=== PATIENT | female | born 1945 | race Hispanic/Latino ===

== ENCOUNTER 2016-06-03 10:21 | Emergency (ER) | payer OTHER, MEDICARE ==
[~2016-06-03] VITALS: Ht 149.9 cm; Wt 76.7 kg
[~2016-06-03 10:21] MED LIST: ARICEPT5 M1 PO; ATENOLOL25 M1 PO; ATENOLOL50 MG PO; ATORVASTATIN CA40 M1 PO; ATORVASTATIN CA40 MG PO; CLOPIDOGREL75 MG PO; FLUTICASONE PRO16 GM NASB; KEPPRA500 M1 PO; LOSARTAN POTASS50 MG PO; METFORMIN1000 MG PO; MIRTAZAPINE45 MG PO; NEURONTIN100 M1 PO; NEXIUM40 M1 PO; NOVOLOG100 U/ML SC; OMEPRAZOLE40 MG PO; ONETOUCH ULTRA1 EACH INH; SERTRALINE HYDR25 MG PO; TRADJENTA5 M1 PO; VITAMIN D2400 IU PO; ZOFRAN 4 MG TABL4 MG PO; ZOLOFT 100 MG100 MG PO
--- NOTE | 2016-06-03 10:32 | ED NECK/BACK PAIN COMPLAINT ---
History of Present Illness General Chief Complaint: Low Back Pain/Injury Stated Complaint: LOWER BACK PAIN X 4DAYS Source: patient, family Exam Limitations: language barrier Vital Signs & Intake/Output Vital Signs & Intake/Output Vital Signs Date Time Temp Pulse Resp B/P Pulse O2 O2 Flow FiO2 Ox Delivery Rate 06/03 1214 97.2 58 18 139/64 97 Room Air 06/03 1026 97.2 71 20 135/67 98 Room Air Allergies Coded Allergies: Penicillins (Intermediate, HIVES 09/28/15) Triage Note: RIGHT LOWER BACK PAIN THAT RADIATES TOWARDS THE CENTER OF BACK X 4 DAYS. PT DENIES INJURY, PT DENIES URINARY S&S Triage Nurses Notes Reviewed? 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 Acute renal failure requiring emergent hemodialysis 2. Hyperkalemia with EKG changes 3. Uremia 4. Lactic acodisos 5. Severe dehydration 6. Acute gastroenteritis 7. Acute hypoxemic respiratory failure Patient presents to emergency room with daughter who translates in which patient is primarily Serbian-speaking only who states that for the past 4 days patient has been complaining of gradual onset of right-sided paralumbar muscular back pain that has progressively worsened and now has mild radiation to the left paralumbar muscular region. Patient denies any mechanism of injury. Patient states that rest she feels better and lumbar spine movements and ambulation makes worse. Denies any lower extremity paresthesia weakness or pain. Patient does state that the first day she had nausea however this has completely resolved. Patient denies any fevers chills chest pain abdominal pain current nausea or vomiting dysuria hematuria or vaginal bleeding or discharge. Patient has been trying [id number] pain medications with minimal relief of symptoms. (EDUARDO CHU) Reconcile Medications Atenolol 25 MG TABLET 75 MG PO DAILY HTN (Reported) Atorvastatin Calcium (Lipitor) 40 MG TAB 1 TAB PO DAILY CHOLESTEROL (Reported ) Blood Sugar Diagnostic (flexReceipts Ultra Test Strips) 1 EACH STRIP 1 STR INH DAILY DIABETES (Reported) CLOPIDOGREL BISULFATE (Clopidogrel) 75 MG TAB 1 TAB PO DAILY STROKE (Reported ) Donepezil HCl (Aricept) 5 MG TABLET 1 TAB PO QPM DEMENTIA (Reported) Ergocalciferol (Vitamin D2) 400 IU TAB 1 TAB PO WEEKLY SUPPLEMENT (Reported) Esomeprazole (Nexium) 40 MG CAPSULE.DR 1 CAP PO DAILY GERD (Reported) Fluticasone Propionate 16 GM SPRAY.SUSP 2 SPRAY NASB DAILY SINUS (Reported) Gabapentin (Neurontin) 100 MG CAPSULE 2 CAP PO AT BEDTIME HEADACHE (Reported) Hydrocodone/Acetaminophen (Vicodin 5-300 MG Tablet) 5 MG-300 MG TABLET 1 TAB PO BID PRN PAIN DO NOT OPERATE MOTOR VEHICLES WITH THIS MEDICATION Insulin Aspart, Recombinant (Novolog) 100 U/ML MARGARITA 1 UNITS SC SEE ADMIN CRITERIA diabetes BEFORE MEALS Blood Insulin Sugar Units <80 0 81-150 0 151-200 1 201-250 2 251-300 3 301-350 4 351-400 6 >400 8 and tameka MARQUES Levetiracetam (Keppra) 500 MG TABLET 500 MG PO BID SEIZURE Linagliptin (Tradjenta) 5 MG TABLET 0.5 TAB PO DAILY DIABETES (Reported) (VALENTE MARQUES,ALICIA Hweitt) Past History Travel History Traveled to [place] past 21 day No Medical History Any Pertinent Medical History? 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 No (REMA SIMPSON,EDUARDO) Review of Systems Review of Systems Constitutional: Reports: see HPI. Eyes: Reports: no symptoms. Ears, Nose, Throat, Mouth: Reports: no symptoms. Respiratory: Reports: no symptoms. Cardiovascular: Reports: no symptoms. Gastrointestinal/Abdominal: Reports: see HPI. Musculoskeletal: Reports: see HPI, back pain, muscle pain, muscle stiffness. Skin: Reports: no symptoms. Neurological/Psychological: Reports: no symptoms. All Other Systems: Reviewed and Negative (EDUARDO CHU) Physical Exam Physical Exam General Appearance: no apparent distress, obese Neck: normal inspection, supple, full range of motion Straight Leg Raising: Right: Negative. Left: Negative. Comments: Well-developed well-nourished person in no acute distress HEENT: Normal EENT exam, Neck: Supple, no lymphadenopathy, normal range of motion without pain or tenderness Back: Normal inspection, right-sided paralumbar muscular tenderness, no central spinous tenderness noted, mild left lateral muscular lumbar point tenderness, decreased active range of motion noted with pain Cardiovascular: Regular rate and rhythms no murmurs rubs or gallops, normal JVP Respiratory: Chest nontender. No respiratory distress.breath sounds clear to auscultation bilaterally Abdomen: Soft, nontender nondistended, no appreciable organomegaly. Normal bowel sounds. No ascites Extremity: No edema, no calf tenderness to palpation, normal and equal pulses. Bilateral lower extremity myotomes dermatomes DTRs intact Neuro: Alert oriented x3, motor sensory normal, Skin: No appreciable rash on exposed skin, skin is warm and dry. Psych: Mood and affect is normal, memory and judgment is normal. (EDURADO CHU) Progress Differential Diagnosis: AAA, aortic dissection, C spine injury, carotid dissection, cauda equina syn, herniated disc, myofascial strain, pyelo/UTI, sciatica, spinal cord inj, thoracic outlet syn, T/L spine injury, ureterolithiasis, PYELONEPHRITIS, SEPSIS, (EDUARDO CHU) Plan of Care: Orders Procedure Date/time Status Add-on Test (ER Only) 06/03 1209 Active CULTURE,URINE 06/03 1129 Active URINALYSIS 06/03 1113 Complete COMPREHENSIVE METABOLIC PANEL 06/03 1113 Complete CBC WITHOUT DIFFERENTIAL 06/03 1113 Complete Laboratory Tests 06/03/16 1129: Urine Color YEL, Urine Clarity CLEAR, Urine pH 6.0, Ur Specific Mcewen >= 1.030 , Urine Protein TRACE H, Urine Ketones NEG, Urine Nitrite NEG, Urine Bilirubin NEG, Urine Urobilinogen 0.2, Ur Leukocyte Esterase NEG, Ur Microscopic SEDIMENT EXAMINED, Urine RBC RARE, Urine WBC RARE, Ur Epithelial Cells MOD H, Urine Bacteria MANY H, Urine Mucus RARE, Urine Hemoglobin NEG, Urine Glucose NEG 06/03/16 1126: Anion Gap 6, Estimated GFR 44 L, BUN/Creatinine Ratio 24.2, Glucose 123 H, Calcium 9.7, Total Bilirubin 0.5, AST 22, ALT 32, Alkaline Phosphatase 90, Total Protein 7.1, Albumin 4.2, Globulin 2.9, Albumin/Globulin Ratio 1.4, CBC w Diff NO MAN DIFF REQ, RBC 4.01 L, MCV 87.0, MCH 29.3, RDW 14.4, MPV 7.6, Gran % 56.9 , Lymphocytes % 33.4, Monocytes % 6.1, Eosinophils % 3.3, Basophils % 0.3, Absolute Granulocytes 4.8, Absolute Lymphocytes 2.8, Absolute Monocytes 0.5, Absolute Eosinophils 0.3, Absolute Basophils 0, PUBS MCHC 33.6 Microbiology 06/03 1129 URINE ROUT: Urine Culture - RECD Patient currently is in no apparent distress, nontender abdomen, patient alert and oriented. Patient was afebrile. Patient was able to urinate in the emergency room and noted to have normal steady gait on ambulation to the bathroom. Due to past history of acute kidney injury and emergent dialysis patient's blood work will be obtained however my suspicion at this time of lumbar strain is high due to reproducible pain upon lumbar spine movement and muscular point tenderness. Patient had improvement of her back pain with Tylenol with Codeine. Discussed results with patient and family member in which at this time there are no concerns of acute kidney injury or intra-abdominal process. I discussed thoroughly with patient and family member to begin using fall prevention and continue to use a cane and patient will comply. Upon discharge patient looks well no apparent distress and will comply with discharge instructions and had no questions. Discussed disposition plan with Dr. Lozoya who agrees (EDUARDO CHU) Departure Departure Disposition: HOME OR SELF CARE Condition: Stable Clinical Impression Primary Impression: Low back pain Referrals: SHERLY PATEL (PCP/Family) Additional Instructions: As discussed continue to always use a cane for fall prevention. Begin the prescription of Vicodin for breakthrough pain relief. If no better tomorrow please follow-up with your primary care doctor. If symptoms worsen return to emergency room. Activity as tolerated. Begin icing or heating to improve the pain Prescriptions are waiting at [facility] pharmacy Departure Forms: Customer Survey General Discharge Information Prescriptions: Current Visit Scripts Hydrocodone/Acetaminophen (Vicodin 5-300 MG Tablet) 1 TAB PO BID PRN PAIN #8 TAB DO NOT OPERATE MOTOR VEHICLES WITH THIS MEDICATION (REMA SIMPSON,EDUARDO) PA/1ST GRADE TEACHER Co-Sign Statement Statement: ED Attending supervision documentation- [x] I saw and evaluated the patient. I have also reviewed all the pertinent lab results and diagnostic results. I agree with the findings and the plan of care as documented in the PA's/1ST GRADE TEACHER's documentation. [] I have reviewed the ED Record and agree with the PA's/1ST GRADE TEACHER's documentation. [] Additions or exceptions (if any) to the PAs/1ST GRADE TEACHER's note and plan are summarized below: [] (VALENTE MARQUES,ALICIA Hewitt)
[2016-06-03 11:32] LABS: ABSOLUTE BASOPHIL COUNT 0 /CUMM (0.0-0.2); ABSOLUTE EOSINOPHIL COUNT 0.3 /CUMM (0.0-0.7); ABSOLUTE GRANULOCYTE CT 4.8 /CUMM (1.4-6.5); ABSOLUTE LYMPH COUNT 2.8 /CUMM (1.2-3.4); ABSOLUTE MONOCYTE COUNT 0.5 /CUMM (0.10-0.60); BASOPHIL % 0.3 % (0.0-2.0); EOSINOPHIL % 3.3 % (0-5); GRANULOCYTE % 56.9 % (42.2-75.2); HEMATOCRIT 34.9 % (37-47); MEAN CORPUSCULAR HGB 29.3 PG (27.0-31.0); MEAN CORPUSCULAR HGB CONC 33.6 G/DL (33.0-37.0); MEAN PLATELET VOLUME 7.6 FL (7.4-10.4); PLATELET COUNT 217 /CUMM (130-400); RBC DISTRIBUTION WIDTH 14.4 % (11.5-14.5); RED BLOOD CELL CT 4.01 /CUMM (4.20-5.40); WHITE BLOOD CELL COUNT 8.5 /CUMM (4.8-10.8)
[2016-06-03 12:14] VITALS: BP 139/64
[2016-06-03] MEDS ORDERED: VICODIN 5-3001 EACH PO (12:24)
== END 2016-06-03 12:57 ==
LOC: ERH 10:21
PROVIDERS: Physician Assistant
DX: M54.5 Low back pain (principal)
CPT/HCPCS: 81001; 87086

== ENCOUNTER 2016-06-16 03:22 | Inpatient (IN) | payer OTHER, MEDICARE ==
[~2016-06-16] VITALS: Ht 157.5 cm; Wt 76.2 kg
[~2016-06-16 03:22] MED LIST changes: +VICODIN 5-3001 EACH PO
--- NOTE | 2016-06-16 03:30 | NUR ---
71YO FEMALE TO RM 8 VIA AMB W/CO BACK PAIN RECURRING AND UNABLE TO SLEEP. DTR STATE PT SEEN HERE 06/[address] PETIT
--- NOTE | 2016-06-16 03:34 | ED NECK/BACK PAIN COMPLAINT ---
History of Present Illness General Chief Complaint: Low Back Pain/Injury Stated Complaint: BIBA BACK PAIN Source: patient, family, old records, EMS Exam Limitations: no limitations Vital Signs & Intake/Output Vital Signs & Intake/Output Vital Signs Date Time Temp Pulse Resp B/P Pulse O2 O2 Flow FiO2 Ox Delivery Rate 06/16 1119 95.6 68 16 192/82 98 Room Air 06/16 0756 96.1 69 15 135/67 95 Room Air Room Air 06/16 0346 98 Room Air 06/16 0329 97.4 68 16 180/78 98 Room Air Room Air Allergies Coded Allergies: Penicillins (Intermediate, HIVES 09/28/15) Reconcile Medications Atenolol 25 MG TABLET 75 MG PO DAILY HTN (Reported) Atorvastatin Calcium (Lipitor) 40 MG TAB 1 TAB PO DAILY CHOLESTEROL (Reported ) Blood Sugar Diagnostic (ReaMetrix Ultra Test Strips) 1 EACH STRIP 1 STR INH DAILY DIABETES (Reported) CLOPIDOGREL BISULFATE (Clopidogrel) 75 MG TAB 1 TAB PO DAILY STROKE (Reported ) Donepezil HCl (Aricept) 5 MG TABLET 1 TAB PO QPM DEMENTIA (Reported) Ergocalciferol (Vitamin D2) 400 IU TAB 1 TAB PO WEEKLY SUPPLEMENT (Reported) Esomeprazole (Nexium) 40 MG CAPSULE.DR 1 CAP PO DAILY GERD (Reported) Fluticasone Propionate 16 GM SPRAY.SUSP 2 SPRAY NASB DAILY SINUS (Reported) Gabapentin (Neurontin) 100 MG CAPSULE 2 CAP PO AT BEDTIME HEADACHE (Reported) Hydrocodone/Acetaminophen (Vicodin 5-300 MG Tablet) 5 MG-300 MG TABLET 1 TAB PO BID PRN PAIN DO NOT OPERATE MOTOR VEHICLES WITH THIS MEDICATION Insulin Aspart, Recombinant (Novolog) 100 U/ML MARGARITA 1 UNITS SC SEE ADMIN CRITERIA diabetes BEFORE MEALS Blood Insulin Sugar Units <80 0 81-150 0 151-200 1 201-250 2 251-300 3 301-350 4 351-400 6 >400 8 and call Ipratropium Irving 21 MCG (0.03 %) SPRAY 1 SPRAY LESLI DAILY NASAL DRIP ( Reported) Lacosamide (Vimpat) 100 MG TABLET 1 TAB PO BID SEIZURES (Reported) Levetiracetam (Keppra) 500 MG TABLET 500 MG PO BID SEIZURE Linagliptin (Tradjenta) 5 MG TABLET 0.5 TAB PO DAILY DIABETES (Reported) Triage Note: 71YO FEMALE TO RM 8 VIA AMB W/CO BACK PAIN RECURRING AND UNABLE TO SLEEP. DTR STATE PT SEEN HERE 06/04 Triage Nurses Notes Reviewed? yes HPI: Patient was seen here on June 03 for back pain. Patient was sent home on Vicodin. Patient then saw her primary care physician who told her to stop the Vicodin and just take Tylenol for the pain. Since then the pain has been worsening. Tonight the pain was so bad that she was unable to sleep. The pain is aching in nature. The pain radiates to the center of her back. The pain increased with movement. There is no weakness or numbness. There is no incontinence of bowel or bladder. (MARISABEL MARQUES,DEMETRIA Grace) Past History Travel History Traveled to [place] past 21 day No Medical History Any Pertinent Medical History? 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 No (MARISABEL MARQUES,DEMETRIA Grace) Review of Systems Review of Systems Constitutional: Reports: no symptoms. Ears, Nose, Throat, Mouth: Reports: no symptoms. Respiratory: Reports: no symptoms. Cardiovascular: Reports: no symptoms. Gastrointestinal/Abdominal: Reports: no symptoms. Musculoskeletal: Reports: see HPI, back pain. Neurological/Psychological: Reports: no symptoms. (MARISABEL MARQUES,DEMETRIA Grace) Physical Exam Physical Exam General Appearance: well developed/nourished, alert, awake, anxious, mild distress Head: atraumatic Eyes: Bilateral: PERRL, EOMI. Neck: normal inspection, supple, no midline tenderness Respiratory: normal breath sounds, chest non-tender, no respiratory distress, lungs clear Cardiovascular: regular rate/rhythm, normal peripheral pulses Gastrointestinal: normal bowel sounds, soft, non-tender, no organomegaly Back: muscle spasm, no vertebral tenderness Straight Leg Raising: Right: Negative. Left: Negative. Neurologic/Psych: no motor/sensory deficits, awake, alert, oriented x 3, normal mood/affect (MARISABEL MARQUES,DEMETRIA Grace) Progress Differential Diagnosis: herniated disc, myofascial strain, T/L spine injury Plan of Care: Orders Procedure Date/time Status Regular Diet 06/16 L Active Regular Diet 06/16 B Complete Patient Data 06/16 1102 Active OXYGEN SETUP (GEN) 06/16 1047 Active Saline Lock 06/16 1047 Active Admit to inpatient 06/16 1047 Active Vital Signs 06/16 1047 Active Activity/Ambulation 06/16 1047 Active Code Status 06/16 1047 Active Intake & Output 06/16 0845 Active MAGNESIUM 06/16 08 Complete COMPREHENSIVE METABOLIC PANEL 06/16 08 Complete CBC WITHOUT DIFFERENTIAL 06/17 811 Complete PT Evaluate & Treat 06/16 0432 Active CASE MANAGEMENT CONSULT 06/16 0432 Active Laboratory Tests 06/16/16 0835: Anion Gap 12, Estimated GFR 55 L, BUN/Creatinine Ratio 31.0 H, Glucose 110 H, Calcium 10.0, Magnesium 1.9, Total Bilirubin 0.6, AST 24, ALT 34, Alkaline Phosphatase 93, Total Protein 7.7, Albumin 4.5, Globulin 3.2, Albumin/Globulin Ratio 1.4, CBC w Diff NO MAN DIFF REQ, RBC 4.26, MCV 88.2, MCH 29.2, RDW 14.2, MPV 8.3, Gran % 55.0, Lymphocytes % 35.7, Monocytes % 6.0, Eosinophils % 2.9, Basophils % 0.4, Absolute Granulocytes 5.3, Absolute Lymphocytes 3.4, Absolute Monocytes 0.6, Absolute Eosinophils 0.3, Absolute Basophils 0, PUBS MCHC 33.1 Diagnostic Imaging: Viewed by Me: Radiology Read. Discussed w/RAD: Radiology Read. Radiology Impression: PATIENT: PRETTY ROBERTS PRESENT AGE : 71 PATIENT ACCOUNT NO: [id number] : 44 LOCATION: [facility] ORDERING PHYSICIAN: DEMETRIA PETIT MD SERVICE DATE: 06/16/16 EXAM TYPE: RAD - XRY-LUMBOSACRAL SPINE 4 VIEWS EXAMINATION: LUMBOSACRAL SPINE 3 VIEWS CLINICAL INFORMATION: Back pain. COMPARISON: None. TECHNIQUE: AP, lateral, spot lateral views of the lumbosacral spine are provided. FINDINGS: There are no fractures. The lumbar vertebrae are in normal alignment. Disc heights and vertebral body heights are well-preserved. There is mild anterior osteophyte formation. IMPRESSION: Mild degenerative change in the lumbar spine without evidence of acute injury. DICTATED BY: LINNETTE RODRIGUEZ MD DATE/TIME DICTATED:06/16/16417 CANOE MAKER:RAYSA DATE/TIME TRANSCRIBED:06/16/16417 CONFIDENTIAL, DO NOT COPY WITHOUT APPROPRIATE AUTHORIZATION. <Electronically signed in Other Vendor System> SIGNED BY: LINNETTE RODRIGUEZ MD 06/16/16 0426 (DEMETRIA PETIT MD) Departure Departure Disposition: STILL A PATIENT Condition: Stable Clinical Impression Primary Impression: Back pain Referrals: SHERLY PATEL (PCP/Family) Additional Instructions: RETURN FOR ANY CONCNERS Departure Forms: Customer Survey General Discharge Information (DEMETRIA PETIT MD) Admission Note Spoke With: LENIN NASCIMENTO MD Documentation of Exam: Documentation of any treatments & extenuating circumstances including Concerns Regarding Discharge (functional status, medication knowledge or non-compliance, living conditions, etc.) that warrant an admission rather than observation: Analgesia medication adjustment physical therapy continuing care discharge planning ensure safety (COLTON MARQUES,MIKE)
[2016-06-16] MEDS ORDERED: VIMPAT100 M1 PO (03:35)
[2016-06-16] MEDS ORDERED: IPRATROPIUM BRO30 M2 NAS (03:37)
--- NOTE | 2016-06-16 03:54 | NUR ---
TO XR VIA STRETCHER
--- NOTE | 2016-06-16 04:07 | NUR ---
RETD FROM XR
--- NOTE | 2016-06-16 04:10 | NUR ---
STATES "SOME RELIEF AFTER PO MEDS"
--- NOTE | 2016-06-16 04:26 | RADIOLOGY REPORT ---
EXAMINATION: LUMBOSACRAL SPINE 3 VIEWS CLINICAL INFORMATION: Back pain. COMPARISON: None. TECHNIQUE: AP, lateral, spot lateral views of the lumbosacral spine are provided. FINDINGS: There are no fractures. The lumbar vertebrae are in normal alignment. Disc heights and vertebral body heights are well-preserved. There is mild anterior osteophyte formation. IMPRESSION: Mild degenerative change in the lumbar spine without evidence of acute injury.
--- NOTE | 2016-06-16 04:45 | NUR ---
DR PETIT IN TO RE EVAL--PT TO REMAIN HERE IN ER FOR PT EVAL IN AM
--- NOTE | 2016-06-16 05:00 | NUR ---
DAUGHTER PROVIDED RECLINER, TO WAIT FOR PT THIS AM,
--- NOTE | 2016-06-16 07:15 | NUR ---
PT PROVIDED BREAKFAST TRAY. CURRENTLY SLEEPING WITH NORMAL RESP RATE NOTED. DAUGHTER AT BEDSIDE.
--- NOTE | 2016-06-16 08:15 | NUR ---
PT AMBULATED WITH WALKER, ABLE TO AMBULATE WITH WALKER, BUT NEEDS ASSIST OF 1 GETTING IN AND OUT OF BED. PT WALKS VERY SLOWLY AND PER DAUGHTER, NOT HER BASELINE.
--- NOTE | 2016-06-16 08:44 | NUR ---
BLOOD WORK DRAWN AND SENT TO LAB: SST, LAV, BLUE, CISNEROS. PT MEDICATED WITH VALIUM. NS LITER BOLUS INFUSING NOW. PT TO BE MEDICATED WITH OFIRMEV WHEN VALIUM IS FINISHED.
[2016-06-16 08:59] LABS: ABSOLUTE BASOPHIL COUNT 0 /CUMM (0.0-0.2); ABSOLUTE EOSINOPHIL COUNT 0.3 /CUMM (0.0-0.7); ABSOLUTE GRANULOCYTE CT 5.3 /CUMM (1.4-6.5); ABSOLUTE LYMPH COUNT 3.4 /CUMM (1.2-3.4); ABSOLUTE MONOCYTE COUNT 0.6 /CUMM (0.10-0.60); BASOPHIL % 0.4 % (0.0-2.0); EOSINOPHIL % 2.9 % (0-5); HEMATOCRIT 37.5 % (37-47); MEAN CORPUSCULAR HGB 29.2 PG (27.0-31.0); MEAN CORPUSCULAR HGB CONC 33.1 G/DL (33.0-37.0); MEAN CORPUSCULAR VOLUME 88.2 FL (81.0-99.0); MEAN PLATELET VOLUME 8.3 FL (7.4-10.4); PLATELET COUNT 207 /CUMM (130-400); RBC DISTRIBUTION WIDTH 14.2 % (11.5-14.5); RED BLOOD CELL CT 4.26 /CUMM (4.20-5.40); WHITE BLOOD CELL COUNT 9.6 /CUMM (4.8-10.8)
--- NOTE | 2016-06-16 09:09 | NUR ---
PHYSICAL THERAPY AT BEDSIDE FOR EVAL
--- NOTE | 2016-06-16 12:04 | NUR ---
PT NOTED SLEEPING AND HOUSE STAFF AT BEDSIDE TO DEAN PT
--- NOTE | 2016-06-16 13:05 | NUR ---
NURSE CALLED ABOUT 10 MIN AGO TO GET REOPORT AND I WAS NEDICATING A PT AND REQUESTED TO CALL BACK. ATTEMPTED TO GIVE REPORT AND NURSE WAS BUSY BUSY DISCHARGING A PT AND WILL CALLL BACK
--- NOTE | 2016-06-16 13:23 | NUR ---
REPORT GIVEN TO NURSE AND TRANSPORT ALSO CALLED
--- NOTE | 2016-06-16 13:37 | History & Physical ---
SUZANNE MARQUES,JOHANNA 06/16/16 1304: General Information and HPI MD Statement: I have seen and personally examined PRETTY ROBERTS and documented this H&P. The patient is a 71 year old F who presented with a patient stated chief complaint of back pain[]. Source of Information: patient, family Exam Limitations: language barrier History of Present Illness: 71-year-old female with a past nuchal history of right-sided MCA 2014, with left -sided upper extremity deficit currently on Plavix, history of hypertension and insulin-dependent diabetes presents from home with her daughter (Pretty) whom much of the history is obtained from, complaining of increased back pain that started this morning at 2 AM while lying in bed. She was seen in the ER on 06/03 complaining of back pain was given Vicodin and sent home. She completed this prescription and the pain has returned. Reports pain that is 8/10 when trying to ambulate with her cane. Reporting that is aching in nature, radiates from the center for back to her right side. Denies any weakness or numbness, loss of sensation, bowel or bladder incontinence. Allergies/Medications Allergies: Coded Allergies: Penicillins (Intermediate, HIVES 09/28/15) Home Med list Atenolol 25 MG TABLET 75 MG PO DAILY HTN (Reported) Atorvastatin Calcium (Lipitor) 40 MG TAB 1 TAB PO DAILY CHOLESTEROL (Reported ) Blood Sugar Diagnostic ([employer] In[employer]ouch Ultra Test Strips) 1 EACH STRIP 1 STR INH DAILY DIABETES (Reported) CLOPIDOGREL BISULFATE (Clopidogrel) 75 MG TAB 1 TAB PO DAILY STROKE (Reported ) Donepezil HCl (Aricept) 5 MG TABLET 1 TAB PO QPM DEMENTIA (Reported) Ergocalciferol (Vitamin D2) 400 IU TAB 1 TAB PO WEEKLY SUPPLEMENT (Reported) Esomeprazole (Nexium) 40 MG CAPSULE.DR 1 CAP PO DAILY GERD (Reported) Fluticasone Propionate 16 GM SPRAY.SUSP 2 SPRAY NASB DAILY SINUS (Reported) Gabapentin (Neurontin) 100 MG CAPSULE 2 CAP PO AT BEDTIME HEADACHE (Reported) Hydrocodone/Acetaminophen (Vicodin 5-300 MG Tablet) 5 MG-300 MG TABLET 1 TAB PO BID PRN PAIN DO NOT OPERATE MOTOR VEHICLES WITH THIS MEDICATION Insulin Aspart, Recombinant (Novolog) 100 U/ML MARGARITA 1 UNITS SC SEE ADMIN CRITERIA diabetes BEFORE MEALS Blood Insulin Sugar Units <80 0 81-150 0 151-200 1 201-250 2 251-300 3 301-350 4 351-400 6 >400 8 and call Ipratropium [place] 21 MCG (0.03 %) SPRAY 1 SPRAY LESLI DAILY NASAL DRIP ( Reported) Lacosamide (Vimpat) 100 MG TABLET 1 TAB PO BID SEIZURES (Reported) Levetiracetam (Keppra) 500 MG TABLET 500 MG PO BID SEIZURE Linagliptin (Tradjenta) 5 MG TABLET 0.5 TAB PO DAILY DIABETES (Reported) Compliance With Home Meds: GOOD Past History Travel History Traveled to [place] past 21 day No Medical History Neurological: CVA, seizure Cardiovascular: hypertension, hyperlipidemia Gastrointestinal: H/O CDIFF 03/2015 Renal: CKD Psychiatric: depression Endocrine: diabetes Blood Disorders: NONE Cancer(s): NONE CERTIFIED MORTICIAN/Reproductive: NONE Other Medical Hx: family history: negative for renal diseaes History of MRSA: No History of VRE: No History of CDIFF: No Surgical History Surgical History: non-contributory Past Family/Social History Family History Relations & Conditions if any Relation not specified for: FH: diabetes mellitus FHx: hypertension Psychosocial History Who Do You Live With? self Services at Home: None Primary Language: Wallisian Smoking Status: Never Smoked ETOH Use: denies use Illicit Drug Use: denies illicit drug use Functional Ability ADLs Independent: dressing, eating, toileting, bathing. Ambulation: cane IADLs Needs Assist: finances, food prep, transportation, medication admin. Review of Systems Review of Systems Constitutional: Reports: see HPI. Cardiovascular: Reports: no symptoms. Respiratory: Reports: no symptoms. GI: Reports: no symptoms. Genitourinary: Reports: no symptoms. Musculoskeletal: Reports: back pain, muscle pain. Skin: Reports: no symptoms. Neurological/Psychological: Reports: dementia. Denies: numbness, paresthesia, tingling. All Other Systems: Reviewed and Negative Exam & Diagnostic Data Last 24 Hrs of Vital Signs/I&O Vital Signs Date Time Temp Pulse Resp B/P Pulse O2 O2 Flow FiO2 Ox Delivery Rate 06/16 1309 96.1 56 16 168/74 98 Room Air 06/16 1135 95.6 06/16 1119 95.6 68 16 192/82 98 Room Air 06/16 0756 96.1 69 15 135/67 95 Room Air Room Air 06/16 0346 98 Room Air 06/16 0329 97.4 68 16 180/78 98 Room Air Room Air Intake & Output 06/16 1600 06/16 0800 06/16 0000 Intake Total 1100 Output Total Balance 1100 Intake, IV 1100 Patient 169 lb Weight Physical Exam General Appearance Alert, Oriented X3, Cooperative, Moderate Distress Skin No Rashes, No Breakdown HEENT Atraumatic, PERRLA, EOMI, Mucous Membr. moist/pink Neck Supple, No JVD Lymphatic Cervical nl Cardiovascular Regular Rate, Normal S1, Normal S2, No Murmurs Lungs Clear to Auscultation, Normal Air Movement Abdomen Normal Bowel Sounds, Soft, No Tenderness Neurological Normal Speech, Sensation Intact (2/5 left upper extremity) Extremities No Edema, Normal Pulses Last 24 Hrs of Labs/Pancho: Laboratory Tests 06/16/16 0835: Anion Gap 12, Estimated GFR 55 L, BUN/Creatinine Ratio 31.0 H, Glucose 110 H, Calcium 10.0, Magnesium 1.9, Total Bilirubin 0.6, AST 24, ALT 34, Alkaline Phosphatase 93, Total Protein 7.7, Albumin 4.5, Globulin 3.2, Albumin/Globulin Ratio 1.4, CBC w Diff NO MAN DIFF REQ, RBC 4.26, MCV 88.2, MCH 29.2, RDW 14.2, MPV 8.3, Gran % 55.0, Lymphocytes % 35.7, Monocytes % 6.0, Eosinophils % 2.9, Basophils % 0.4, Absolute Granulocytes 5.3, Absolute Lymphocytes 3.4, Absolute Monocytes 0.6, Absolute Eosinophils 0.3, Absolute Basophils 0, PUBS MCHC 33.1 Diagnostic Data Other Results Mild degenerative change in the lumbar spine without evidence of acute injury. Assessment/Plan Assessment: 71-year-old female with a past medical history of right-sided MCA 2014, with left-sided upper extremity deficit currently on Plavix, history of hypertension and insulin-dependent diabetes presents from home complaining of increased back pain that started this morning at 2 AM while lying in bed, that is making mobilization difficult. Admit to for intractable back pain 8/10 back pain that is making mobilization difficult, will start to control pain with Tylenol for mild symptoms, Vicodin for moderate symptom, and morphine for severe. Will apply lidoderm patch. will need PT evaluation. Hypertension BP elevated likely due to pain, continue current regimen, BP recheck 162/82 History of stroke continue clopidogrel History of seizures continue vimpat History of dementia continue aricept Hyperlipidema continue atorvastatin DVT ppx heparin Sq As Ranked By This Provider Problem List: 1. Full code status 2. DVT prophylaxis 3. Diabetes 4. Hypertension 5. Low back pain 6. Dementia Core Measures/Miscellaneous Acute Coronary Syndrome ACS Diagnosis: No Cerebrovascular Accident CVA/TIA Diagnosis: No Congestive Heart Failure CHF Diagnosis: No Venous Thromboembolism VTE Risk Factors: Age > 40 No Mech VTE prophylaxis d/t: No contraindications No VTE Pharm Prophylaxis d/t: VTE low risk, No contraindications VTE Diagnosis: No VTE Type: NONE VTE Confirmed by (Test): NONE Severe Sepsis Severe Sepsis Present: No Septic Shock Septic Shock Present: No Miscellaneous Documentation Attending Case Discussed With: ARGENIS SILVERMAN MD Primary Care Physician: SHERLY PATEL Patient sees these Specialists none Level of Patient Care: General Medicine ARGENIS SILVERMAN 06/16/16 1414: Attending MD Review Statement Attending Statement Attending MD Statement: examined this patient, discuss w/resident/PA/MANNEQUIN MOUNTER, agreed w/resident/PA/MANNEQUIN MOUNTER, discussed with family, reviewed EMR data (avail), discussed with nursing, discussed with case mgmt, reviewed images Attending Assessment/Plan: 71-year-old female with a past nuchal history of right-sided MCA 2014, with left -sided upper extremity deficit currently on Plavix, history of hypertension and insulin-dependent diabetes ASSESSMENT 1. Intractable Back pain 2. H/o Stroke on plavix residual weakness of LUE 3/5 3. Hypertension accelerated 4. DM on insulin. 5 h/o seizure on Vimpat PLAN admit to medical services X-ray spine is negative for acute pathology, check UA, ESR. pain control , morphine i/v prn. IVF RISS and titrate insulin as needed. resume home meds. gi/dvt prophyalxis full code.
[2016-06-16 14:46] VITALS: BP 151/65
--- NOTE | 2016-06-16 20:20 | NUR ---
LATE ENTRY: PATIENT ARRIVED TO FLOOR AT APPROX 1400 FROM ED VIA STRETCHER ACCOMPANIED BY DISTRIBUTION; PATIENT AWAKE/ ALERT/OX3; MOSTLY BENGALI SPEAKING; ROOM AIR WITH CLEAR LUNG SOUNDS NOTED; PATIENT STATES PAIN TO BACK IS 9/10; LIDODERM PATCH TO LOWER BACK IN PLACE- PLACED BY ED AT 1315; PATIENT ORIENTED TO ROOM; CALL VICTOR GIVEN, EXPLAINED USE AND IN REACH; WILL CONT TO MONITOR
[2016-06-16 21:38] VITALS: BP 142/68
[2016-06-17 06:49] VITALS: BP 126/76
--- NOTE | 2016-06-17 07:45 | Discharge Summary ---
Visit Information Visit Dates Admission Date: 06/16/16 Discharge Date: 06/19/16 Hospital Course Course Attending Physician: ARGENIS SILVERMAN MD Primary Care Physician: SHERLY PATEL Hospital Course: This is a 71-year-old female with a past medical history of ischemic stroke in November 2014 with left-sided neurological deficit, currently on Plavix, hypertension, IDDM who has recently been discharged from the shelter facility and has been living with her daughter for the last 2 weeks with nurses aide visiting her at home when necessary. The patient came to the emergency department for intractable low back pain. The patient denied any recent trauma or fall prior coming to the emergency department. No neurological deficits were reported. No evidence of bowel or bladder incontinence or numbness or tingling as well. vitals the time of admission were stable Physical examination was awake within normal limits The patient was admitted to the general medicine floor and was treated for the following problems 1. intractable back pain in the thoracolumbar area with no neurological deficits 2. Chronic insulin-dependent diabetes mellitus 3. Previous history of MCA in 2004 with left-sided mild neurological deficit 4. Hypertension chronic Hospital course The patient was evaluated for the back pain. All the blood work including a CBC and basic collection panel were within normal limits we checked the patient's ESR which was also within normal limits. The patient lumbar spinal x-ray was done but did not show any acute fractures No further imaging was performed. The patient back pain was secondary to muscular in origin. Recommend giving Percocet for pain control. The patient will feel better with physical therapy. No changes were made to the patient's home medication and she was discharged to the short-term rehabilitation.She required 3 nghts of hospital stay for STR. Allergies: Coded Allergies: Penicillins (Intermediate, HIVES 09/28/15) Disposition Summary Disposition Principal Diagnosis: Low intractable back pain Additional Diagnosis: Insulin-dependent diabetes mellitus Chronic hypertension Chronic hyperlipidemia Discharge Disposition: SNF Discharge Instructions General Discharge Information Code Status: Full Code Patient's Diet: As tolerated Patient's Activity: As tolerated band recommended by the physical therapy Follow-Up Instructions/Appts: His follow-up with the primary care physician in one week Medications at Discharge Discharge Medications: Continue taking these medications: Ergocalciferol (Vitamin D2) 400 IU TAB 1 Tablet ORAL WEEKLY Comments: NOT GIVEN IN HOSPITAL CLOPIDOGREL BISULFATE (Clopidogrel) 75 MG TAB 1 Tablet ORAL DAILY Comments: Last Taken: 1/14/16 Time: 930AM Atorvastatin Calcium (Lipitor) 40 MG TAB 1 Tablet ORAL DAILY Comments: Last Taken: 03/20/15 Time: 930AM Insulin Aspart, Recombinant (Novolog) 100 U/ML MARGARITA 1 Units Inject into fatty tissue SEE INSTRUCTIONS Days = 28 Instructions: BEFORE MEALS Blood Insulin Sugar Units <80 0 81-150 0 151-200 1 201-250 2 251-300 3 301-350 4 351-400 6 >400 8 and call Comments: Last Taken: 03/20/15 Time: 1200PM Linagliptin (Tradjenta) 5 MG TABLET 0.5 Tablet ORAL DAILY Qty = 30 Comments: NOT GIVEN IN HOSPITAL Esomeprazole (Nexium) 40 MG CAPSULE.DR 1 Capsule ORAL DAILY Qty = 30 Comments: Last Taken: 02/16/16 Time: 6AM Atenolol (Atenolol) 25 MG TABLET 75 Milligram ORAL DAILY Qty = 90 Comments: Last Taken: 02/16/16 Time: 10AM Blood Sugar Diagnostic ([employer] Ultra Test Strips) 1 EACH STRIP 1 Strip Inhale through mouth DAILY Qty = 50 Comments: NOT GIVEN IN HOSPITAL Fluticasone Propionate (Fluticasone Propionate) 16 GM SPRAY.SUSP 2 [place] Both sides of nose DAILY Qty = 16 Comments: Last Taken: 02/16/16 Time: 10AM Donepezil HCl (Aricept) 5 MG TABLET 1 Tablet ORAL Every night Comments: Last Taken: 02/15/16 Time: 10PM Gabapentin (Neurontin) 100 MG CAPSULE 2 Capsule ORAL AT BEDTIME Comments: Last Taken: 02/15/16 Time: 10AP Levetiracetam (Keppra) 500 MG TABLET 500 [place] ORAL TWICE DAILY Days = 60 Comments: Last Taken: 02/16/16 Time: 10AM Hydrocodone/Acetaminophen (Vicodin 5-300 MG Tablet) 5 MG-300 MG TABLET 1 Tablet ORAL TWICE DAILY as needed for PAIN Qty = 8 Instructions: DO NOT OPERATE MOTOR VEHICLES WITH THIS MEDICATION Lacosamide (Vimpat) 100 MG TABLET 1 Tablet ORAL TWICE DAILY Qty = 60 Ipratropium [place] (Ipratropium [place]) 21 MCG (0.03 %) SPRAY 1 [place] In the nose DAILY Qty = 30 Start taking the following new medications: Oxycodone HCl/Acetaminophen (Percocet 5-325 MG Tablet) 5 MG-325 MG TABLET 1 Tablet ORAL TWICE DAILY Qty = 20 No Refills Copies To: SHERLY PATEL
--- NOTE | 2016-06-17 11:05 | PN- Housestaff ---
BARBAR[facility]QU[facility] [place] 06/17[facility]16 1105: Subjective Follow-up For: Intractable back pain Subjective: Afebrile, hemodynamically stable, no acute overnight events reported. He was complaining of 8 out of 10 lower back pain that radiated to her left thigh anteriorly. Patient denies urine or bowel incontinence. She denies any new weakness, numbness or tingling. She has no history of trauma or moving heavy objects. Patient speak only Kazakh Review of Systems Constitutional: Reports: see HPI. Objective Last 24 Hrs of Vital Signs/I&O Vital Signs Date Time Temp Pulse Resp B/P Pulse O2 O2 Flow FiO2 Ox Delivery Rate 06/17 1110 53 124/59 06/17 0649 97.1 94 18 126/76 96 Room Air 06/16 2138 97.8 66 18 142/68 99 Room Air 06/16 1851 62 06/16 1446 98.7 58 20 151/65 98 Room Air Intake & Output 06/17 1600 06/17 0800 06/17 0000 Intake Total 1040 Output Total 250 Balance 790 Intake, IV 0 Intake, Oral 1040 Number 0 Bowel Movements Output, Urine 250 Physical Exam General Appearance: Alert, Oriented X3, Cooperative, Mild Distress Skin: No Rashes HEENT: Atraumatic, PERRLA, EOMI, Mucous Membr. moist/pink Cardiovascular: Regular Rate, Normal S1, Normal S2, No Murmurs Lungs: Clear to Auscultation, Normal Air Movement Abdomen: Soft, No Tenderness Neurological: Normal Speech, 5/5 ON THE RIGHT SIDE UE AND LE. 5/5 ON THE LEFT SIDE LE, and 4/5 ON THE LEFT UE Extremities: No Clubbing, No Cyanosis, No Edema Current Medications: Current Medications Sig/Zach Start time Last Medication Dose Route Stop Time Status Admin Acetaminophen 650 MG Q6P PRN 06/16 1300 AC PO Acetaminophen/ 1 TAB Q6P PRN 06/16 1300 AC 06/17 Hydrocodone Bitart PO 0819 Atenolol 75 MG DAILY 06/16 1301 AC 06/16 PO 1851 Atorvastatin Calcium 40 MG 1700 06/16 1700 AC 06/16 PO 1754 Clopidogrel Bisulfate 75 MG DAILY 06/16 1300 AC 06/17 PO 1057 Donepezil HCl 5 MG QPM 06/16 2200 AC 06/16 PO 2234 Fluticasone 2 SPRAY DAILY 06/16 1301 AC 06/17 Propionate LESLI 1058 Gabapentin 200 MG AT BEDTIME 06/16 2200 AC 06/16 PO 2234 Heparin Sodium 5,000 UNIT Q8 06/16 1400 AC 06/17 (Porcine) SC 1351 Insulin Aspart 0 TIDAC 06/16 1700 AC 06/17 SC 1352 Lacosamide 100 MG BID 06/16 1315 AC 06/17 PO 1120 Lidocaine 1 PAT Q24H 06/16 1300 AC 06/17 EXT 1351 Morphine Sulfate 2 MG Q6-PRN PRN 06/16 1300 AC 06/17 IV 0621 Omeprazole 40 MG DAILY AC 06/16 1301 AC 06/17 PO 0621 Last 24 Hrs of Lab/Pancho Results Last 24 Hrs of Labs/Mics: Laboratory Tests 06/17/16 1125: ESR [place] 16 06/16/16 1450: ESR [place] Cancelled 06/16/16 1445: Urine Color Cancelled, Urine Clarity Cancelled, Urine pH Cancelled, Ur Specific [place] Cancelled, Urine Protein Cancelled, Urine Ketones Cancelled, Urine Nitrite Cancelled, Urine Bilirubin Cancelled, Urine Urobilinogen Cancelled, Ur Leukocyte Esterase Cancelled, Ur Microscopic Cancelled, Urine Hemoglobin Cancelled, Urine Glucose Cancelled Assessment/Plan Assessment: 71/F with PMHx of right-sided MCA 2014, with left-sided upper extremity deficit currently on Plavix, history of hypertension and insulin-dependent diabetes presents from home complaining of increased back pain that started on the morning of admission while lying in bed. #Intractable back pain Patient presented with 10/10 lower back pain that radiated to to the left thigh anteriorly. Patient denies bowel or urine incontinence. Lumbosacral spine 3 views x-ray result; Mild degenerative change in the lumbar spine without evidence of acute injury. * We will order ESR again * PT evaluation recommended STR. #Hypertension * BP elevated most likely due to pain * Continue home dose of Atenolol 75mg #History of stroke * Continue home dose of clopidogrel #History of seizures * Continue home dose of vimpat #History of dementia * Continue home dose of aricept #Hyperlipidema * Continue atorvastatin #DM * Accu-Chek and insulin sliding scale Diabetic diet DVT ppx heparin Sq Full code Problem List: 1. Low back pain Pain Ratin Pain Location: LOWER BACK Pain Goal: Pain 4 or less Pain Plan: SEE A&P Tomorrow's Labs & Rationales: NONE ALL LABS WAS WNL ARGENIS SILVERMAN 06/17/16 1126: Attending MD Review Statement Attending Statement Attending MD Statement: examined this patient, discuss w/resident/PA/ORGANIC LAB WORKER, agreed w/resident/PA/ORGANIC LAB WORKER, discussed with family, reviewed EMR data (avail), discussed with nursing, discussed with case mgmt, reviewed images Attending Assessment/Plan: 71-year-old female with a past medical history of right-sided MCA 2014, with left-sided upper extremity deficit currently on Plavix, history of hypertension and insulin-dependent diabetes ASSESSMENT 1. Intractable Back pain 2. H/o Stroke on plavix residual weakness of LUE 4/5 3. Hypertension accelerated 4. DM on insulin. 5 h/o seizure on Vimpat 6. h/o c diff in past. PLAN admit to medical services X-ray spine is negative for acute pathology, check UA, ESR. (ESR was cancelled by lab) pain control , morphine i/v prn. IVF RISS and titrate insulin as needed. resume home meds. gi/dvt prophyalxis full code.
--- NOTE | 2016-06-17 11:30 | NUR ---
NSG NOTE: THIS RN HELD PATIENTS ATENOLOL 75 MG; POLLO 124/59; HR 53; ISMAIL #[id number] AWARE; WILL CONT TO MONITOR
--- NOTE | 2016-06-17 11:38 | Patient Discharge Instructions ---
Discharge Instructions General Discharge Information You were seen/treated for: low back pain You had these procedures: none Special Instructions: please f/u with pcp in 1 week of dsicharge Acute Coronary Syndrome Inclusion Criteria At DC or during hospital stay patient has or had the following: ACS DIAGNOSIS No Discharge Core Measures Meds if any: Prescribed or Continued at Discharge Meds if any: NOT Prescribed or Continued at Discharge Congestive Heart Failure Inclusion Criteria At DC or during hospital stay patient has or had the following: CHF DIAGNOSIS No Discharge Core Measures Meds if any: Prescribed or Continued at Discharge Meds if any: NOT Prescribed or Continued at Discharge Cerebrovascular accident Inclusion Criteria At DC or during hospital stay patient has or had the following: CVA/TIA Diagnosis No Discharge Core Measures Meds if any: Prescribed or Continued at Discharge Meds if any: NOT Prescribed or Continued at Discharge Venous thromboembolism Inclusion Criteria VTE Diagnosis No VTE Type NONE VTE Confirmed by (Test) NONE Discharge Core Measures - Per Current guidelines, there needs to be overlap - treatment for the first 5 days of Warfarin therapy. - If discharged on Warfarin prior to 5 days of - overlap therapy, the patient will need to be - assessed for post discharge needs including - *Post discharge parental anticoagulation - *Warfarin and/or parental anticoagulation education - *Follow up date to check INR post discharge At least 5 days overlap therapy as Inpatient No Meds if any: Prescribed or Continued at Discharge Note: Overlap Therapy is Warfarin and Anticoagulant Meds if any: NOT Prescribed or Continued at Discharge
[2016-06-17 14:37] VITALS: BP 135/68
[2016-06-17 22:38] VITALS: BP 118/58
[2016-06-18 06:59] VITALS: BP 124/60
--- NOTE | 2016-06-18 09:07 | PN- Housestaff ---
See Addendum Subjective Follow-up For: Intractable back pain Subjective: Afebrile, hemodynamically stable, no acute overnight events reported. She is complaining of 7 out of 10 lower back pain that radiated to her left thigh anteriorly. She denies any other complaints, she denies alarming symptom. Review of Systems Constitutional: Reports: see HPI. Objective Last 24 Hrs of Vital Signs/I&O Vital Signs Date Time Temp Pulse Resp B/P Pulse O2 O2 Flow FiO2 Ox Delivery Rate 06/18 0659 97.8 69 18 124/60 93 Room Air 06/17 2238 97.1 71 19 118/58 93 Room Air 06/17 1555 58 130/72 06/17 1529 Room Air Room Air 06/17 1437 98.6 66 20 135/68 94 Room Air 06/17 1110 53 124/59 Intake & Output 06/18 1600 06/18 0800 06/18 0000 Intake Total 240 800 Output Total 450 Balance 240 350 Intake, Oral 240 800 Output, Urine 450 Physical Exam General Appearance: Alert, Oriented X3, Cooperative, No Acute Distress Skin: No Rashes HEENT: Atraumatic, PERRLA, EOMI, Mucous Membr. moist/pink Cardiovascular: Regular Rate, Normal S1, Normal S2, No Murmurs Lungs: Clear to Auscultation, Normal Air Movement Abdomen: Normal Bowel Sounds, Soft, No Tenderness Neurological: Normal Speech, Strength at 5/5 X4 Ext (except 4/5 on Lt UE), Sensation Intact, Cranial Nerves 3-12 NL Extremities: No Clubbing, No Cyanosis, No Edema Other Physical Findings: left lower back tenderness Current Medications: Current Medications Sig/Zach Start time Last Medication Dose Route Stop Time Status Admin Acetaminophen 650 MG Q6P PRN 06/16 1300 AC PO Acetaminophen/ 1 TAB Q6P PRN 06/16 1300 AC 06/18 Hydrocodone Bitart PO 0640 Atenolol 75 MG DAILY 06/16 1301 AC 06/17 PO 1555 Atorvastatin Calcium 40 MG 1700 06/16 1700 AC 06/17 PO 1746 Clopidogrel Bisulfate 75 MG DAILY 06/16 1300 AC 06/17 PO 1057 Donepezil HCl 5 MG QPM 06/16 2200 AC 06/17 PO 2212 Fluticasone 2 SPRAY DAILY 06/16 1301 AC 06/17 Propionate LESLI 1058 Gabapentin 200 MG AT BEDTIME 06/16 2200 AC 06/17 PO 2212 Heparin Sodium 5,000 UNIT Q8 06/16 1400 AC 06/18 (Porcine) SC 0639 Insulin Aspart 0 TIDAC 06/16 1700 AC 06/17 SC 1352 Lacosamide 100 MG BID 06/16 1315 AC 06/17 PO 2212 Lidocaine 1 PAT Q24H 06/16 1300 AC 06/17 EXT 1351 Morphine Sulfate 2 MG Q6-PRN PRN 06/16 1300 AC 06/18 IV 0823 Omeprazole 40 MG DAILY AC 06/16 1301 AC 06/18 PO 0639 Last 24 Hrs of Lab/Pancho Results Last 24 Hrs of Labs/Mics: Laboratory Tests 06/17/16 1125: ESR Westergren 16 Assessment/Plan Assessment: 71/F with PMHx of right-sided MCA 2014, with left-sided upper extremity deficit currently on Plavix, history of hypertension and insulin-dependent diabetes presents from home complaining of increased back pain that started on the morning of admission while lying in bed. #Intractable back pain Patient presented with 10/10 lower back pain that radiated to to the left thigh anteriorly. Patient denies bowel or urine incontinence. Lumbosacral spine 3 views x-ray result; Mild degenerative change in the lumbar spine without evidence of acute injury. ESR result was WNL yesterday. PT evaluation recommended STR. * Continue pain management as IV morphine 2 mg every 6 when necessary and [place] 1 Tab Q6 PRN * We will most likely discharged to a short-term rehabilitation #Hypertension * Continue home dose of Atenolol 75mg #History of stroke * Continue home dose of clopidogrel #History of seizures * Continue home dose of vimpat #History of dementia * Continue home dose of aricept #Hyperlipidema * Continue atorvastatin #DM * Accu-Chek and insulin sliding scale Diabetic diet DVT ppx heparin Sq Full code Problem List: 1. Low back pain Pain Ratin Pain Location: lower back Pain Goal: Pain 4 or less Pain Plan: See A&P Tomorrow's Labs & Rationales: no need for lab
[2016-06-18] MEDS ORDERED: PERCOCET 5-3251 EACH PO (09:11)
[2016-06-18 13:56] VITALS: BP 149/69
[2016-06-18 22:30] VITALS: BP 124/64
[2016-06-19 07:26] VITALS: BP 172/74
--- NOTE | 2016-06-19 08:29 | PN- Housestaff ---
See Addendum Subjective Follow-up For: Intractable back pain Subjective: Afebrile, hemodynamically stable, no acute overnight events reported. She is complaining of 6 out of 10 lower back pain. She denies any other complaints, she denies any back pain alarming symptom. He denies any other current complaints Review of Systems Constitutional: Reports: see HPI. Objective Last 24 Hrs of Vital Signs/I&O Vital Signs Date Time Temp Pulse Resp B/P Pulse O2 O2 Flow FiO2 Ox Delivery Rate 06/19 0726 98.8 62 20 172/74 94 Room Air 06/18 2230 98.9 73 19 124/64 90 Room Air 06/18 1356 98.7 55 19 149/69 99 Room Air 06/18 1148 130/66 Intake & Output 06/19 1600 06/19 0800 06/19 0000 Intake Total 250 480 Output Total Balance 250 480 Intake, Oral 250 480 Physical Exam General Appearance: Alert, Oriented X3, Cooperative, No Acute Distress Skin: No Rashes HEENT: Atraumatic, PERRLA, EOMI, Mucous Membr. moist/pink Cardiovascular: Regular Rate, Normal S1, Normal S2, No Murmurs Lungs: Clear to Auscultation, Normal Air Movement Abdomen: Normal Bowel Sounds, Soft Neurological: Normal Speech Extremities: No Clubbing, No Cyanosis, No Edema Current Medications: Current Medications Sig/Zach Start time Last Medication Dose Route Stop Time Status Admin Acetaminophen 650 MG Q6P PRN 06/16 1300 AC PO Acetaminophen/ 1 TAB Q6P PRN 06/16 1300 AC 06/19 Hydrocodone Bitart PO 0604 Atenolol 75 MG DAILY 06/16 1301 AC 06/19 PO 0831 Atorvastatin Calcium 40 MG 1700 06/16 1700 AC 06/18 PO 1741 Bisacodyl 5 MG DAILY PRN 06/18 1700 AC 06/18 PO 1740 Clopidogrel Bisulfate 75 MG DAILY 06/16 1300 AC 06/19 PO 0831 Donepezil HCl 5 MG QPM 06/16 2200 AC 06/18 PO 2105 Fluticasone 2 SPRAY DAILY 06/16 1301 AC 06/19 Propionate LESLI 0831 Gabapentin 200 MG AT BEDTIME 06/16 2200 AC 06/18 PO 2105 Heparin Sodium 5,000 UNIT Q8 06/16 1400 AC 06/19 (Porcine) SC 0558 Insulin Aspart 0 TIDAC 06/16 1700 AC 06/18 SC 1152 Lacosamide 100 MG BID 06/16 1315 AC 06/19 PO 0831 Lidocaine 1 PAT Q24H 06/16 1300 AC 06/18 EXT 1200 Morphine Sulfate 2 MG Q6-PRN PRN 06/16 1300 AC 06/18 IV 0823 Omeprazole 40 MG DAILY AC 06/16 1301 AC 06/19 PO 0558 Assessment/Plan Assessment: 71/F with PMHx of right-sided MCA 2014, with left-sided upper extremity deficit currently on Plavix, history of hypertension and insulin-dependent diabetes presents from home complaining of increased back pain that started on the morning of admission while lying in bed. #Intractable back pain Patient presented with 10/10 lower back pain that radiated to to the left thigh anteriorly. Patient denies bowel or urine incontinence. Lumbosacral spine 3 views x-ray result; Mild degenerative change in the lumbar spine without evidence of acute injury. ESR result was WNL yesterday. PT evaluation recommended STR. * Continue pain management as IV morphine 2 mg every 6 when necessary and [place] 1 Tab Q6 PRN * We will most likely discharged to a short-term rehabilitation later today #Hypertension * Continue home dose of Atenolol 75mg #History of stroke * Continue home dose of clopidogrel #History of seizures * Continue home dose of vimpat #History of dementia * Continue home dose of aricept #Hyperlipidema * Continue atorvastatin #DM * Accu-Chek and insulin sliding scale Diabetic diet DVT ppx heparin Sq Full code Problem List: 1. Low back pain Pain Ratin Pain Location: back Pain Goal: Remain pain free Pain Plan: See A&P Tomorrow's Labs & Rationales: None as patient most likely discharged today
[2016-06-19 14:42] VITALS: BP 132/72
[2016-06-19 14:44] VITALS: BP 172/74
--- NOTE | 2016-06-19 15:32 | NUR ---
NURSING NOTE: REPORT CALLED TO [facility] FOR PATIENT DISCHARGE. REPORT GIVEN TO NURSE COMING ON BEFORE DISCHAGRE ALL PAPERWORK FINISHED.
== END 2016-06-19 17:04 | DRG 552 ==
LOC: ENRESERVDT → ENRESERVTM → ERH 03:22 → 2NB 10:47 → ERHI 10:47 → ENPENDDIS 10:47 → 2NB 13:56
PROVIDERS: Emergency Medicine; ADMIT Internal Medicine
DX: M54.9 Dorsalgia, unspecified (principal); E11.22 Type 2 diabetes mellitus with diabetic chronic kidney disease; F03.90 Unspecified dementia, unspecified severity, without behavioral disturbance, psychotic disturbance, mood disturbance, and anxiety; I69.354 Hemiplegia and hemiparesis following cerebral infarction affecting left non-dominant side; Z79.4 Long term (current) use of insulin; E78.5 Hyperlipidemia, unspecified; I12.9 Hypertensive chronic kidney disease with stage 1 through stage 4 chronic kidney disease, or unspecified chronic kidney disease; N18.9 Chronic kidney disease, unspecified; R56.9 Unspecified convulsions
CPT/HCPCS: 2NBP; 72110; 96374; 96375; 97110-GO; 97116-GO; 97530-GO; J0131; J1644; J3360

== ENCOUNTER 2017-05-24 13:15 | Observation (INO) | payer OTHER, MEDICARE ==
[~2017-05-24] VITALS: Ht 139.7 cm; Wt 81.6 kg
[~2017-05-24 13:15] MED LIST changes: +ASTEPRO205.5 MCG1 NASB; -ATORVASTATIN CA40 MG PO; -CLOPIDOGREL75 MG PO; +CYANOCOBAL1000 MCG/2 IM; +DELTASONE20 MG PO; +DOXYCYCLINE HY100 M4 PO; +ESCITALOPRAM OX10 MG PO; +IPRATROPIUM BRO30 M2 NAS; +LAMOTRIGINE25 M3 PO; +LIDOCAINE1 EACH TOP; +LIPITOR40 M1 PO; -NEURONTIN100 M1 PO; +NEURONTIN300 M1 PO; +PANTOPRAZOLE SO40 M1 PO; +PERCOCET 5-3251 EACH PO; +PLAVIX75 M1 PO; +PROAIR HFA8.5 GM INH; +PROCHLORPERAZINE5 M2 PO; +TAMIFLU75 M1 PO; +TIZANIDINE HCL2 M1 PO; +VIMPAT100 M1 PO; +VITAMIN B-121000 MC3 PO; +VITAMIN D31000 UNI2 PO; +VITAMIN D400 UNI2 PO
--- NOTE | 2017-05-24 13:19 | ED GENERAL ADULT ---
History of Present Illness General Chief Complaint: Nausea, Vomiting, Diarrhea Stated Complaint: N/V Source: patient, family, old records Exam Limitations: no limitations Vital Signs & Intake/Output Vital Signs & Intake/Output Vital Signs Date Time Temp Pulse Resp B/P B/P Pulse O2 O2 Flow FiO2 Mean Ox Delivery Rate 05/24 1715 98.6 59 18 142/80 95 Room Air 05/24 1355 96 05/24 1322 96 05/24 1320 99.0 60 18 172/82 96 Room Air Allergies Coded Allergies: Penicillins (Intermediate, HIVES 05/19/17) Reconcile Medications Albuterol Sulfate (Proair Hfa) 90 MCG HFA.AER.AD 2 PUF INH Q4-6 PRN PRN COUGH/ SOB Atenolol 25 MG TABLET 75 MG PO DAILY HTN (Reported) Atorvastatin Calcium (Lipitor) 40 MG TABLET 1 TAB PO DAILY CHOLESTEROL ( Reported) Azelastine HCl (Astepro) 205.5 MCG (0.15 %) SPRAY.PUMP 2 SPRAY NASB DAILY POST NASAL DRIP (Reported) Cholecalciferol (Vitamin D3) (Vitamin D) 400 UNIT TABLET 1 TAB PO QFRI SUPPLEMENT (Reported) Clopidogrel Bisulfate (Plavix) 75 MG TABLET 1 TAB PO DAILY STROKE (Reported) Donepezil HCl (Aricept) 5 MG TABLET 1 TAB PO QPM DEMENTIA (Reported) Escitalopram Oxalate 10 MG TABLET 1 TAB PO DAILY DEPRESSION (Reported) Gabapentin (Neurontin) 300 MG CAPSULE 1 CAP PO QPM HEADACHE (Reported) Lacosamide (Vimpat) 100 MG TABLET 1 TAB PO BID SEIZURES (Reported) Lamotrigine 25 MG TABLET 2 TAB PO DAILY SEIZURES (Reported) Lidocaine 5 % ADH..PATCH 1 PAT TOP PRN PAIN (Reported) Linagliptin (Tradjenta) 5 MG TABLET 0.5 TAB PO DAILY DIABETES (Reported) Pantoprazole Sodium 40 MG TABLET.DR 1 TAB PO DAILY ACID REFLUX (Reported) Prochlorperazine Maleate 5 MG TABLET 1 TAB PO PRN N/V (Reported) Triage Nurses Notes Reviewed? yes Onset: Abrupt Duration: day(s): (1), constant, continues in ED Timing: recent history Injury Environment: home Severity: mild, moderate No Modifying Factors: none Associated Symptoms: back pain, cough LMP (ages 10-50): post menopausal : No Patient currently breastfeeds: No HPI: 72-year-old female past medical history of CVA with left-sided deficit, seizure disorder, diabetes, hypertension,HLD presents for evaluation of nausea vomiting shortness of breath and cough. Patient was seen here 5 days ago and diagnosed with acute bronchitis. She was started on prednisone pro-air and doxycycline. She's been taking these as directed however daughter feels that she is not improving she continues to have a cough and wheezing. She went to her primary care doctor's office today for follow-up and she was given a DuoNeb. When the DuoNeb started she vomited and has been vomiting since. She is reporting continued abdominal and back pain shortness of breath cough productive of yellow sputum. There's been no fevers chest pain hemoptysis or lower extremity edema. She's been eating and drinking normally does been no nausea or vomiting or diarrhea BEfor today. (Aubrey Box) Past History Medical History Any Pertinent Medical History? see below for history Neurological: CVA, seizure, headaches EENT: NONE Cardiovascular: hypertension, hyperlipidemia Respiratory: NONE Gastrointestinal: H/O CDIFF 03/2015 Hepatic: NONE Renal: CKD Musculoskeletal: NONE Psychiatric: depression Endocrine: diabetes Blood Disorders: NONE Cancer(s): NONE MODEL AND DYE PERSON/Reproductive: NONE Other Medical Hx: family history: negative for renal diseaes History of MRSA: No History of VRE: No History of CDIFF: No Surgical History Surgical History: non-contributory Psychosocial History Who do you live with Family Services at Home None What is your primary language Mongolian Family History Family History, If Any: Relation not specified for: FH: diabetes mellitus FHx: hypertension Hx Contributory? No (Aubrey Box) Review of Systems Review of Systems Constitutional: Reports: no symptoms. EENTM: Reports: no symptoms. Respiratory: Reports: see HPI, cough, short of breath, sputum production, wheezing. Cardiovascular: Reports: no symptoms. GI: Reports: see HPI, abdominal pain, nausea. Genitourinary: Reports: no symptoms. Musculoskeletal: Reports: see HPI, back pain. Skin: Reports: no symptoms. Neurological/Psychological: Reports: no symptoms. Hematologic/Endocrine: Reports: no symptoms. Immunologic/Allergic: Reports: no symptoms. All Other Systems: Reviewed and Negative (Aubrey Box) Physical Exam Physical Exam General Appearance: well developed/nourished, no apparent distress, alert, awake , obese Head: atraumatic, normal appearance Eyes: Bilateral: normal appearance, PERRL, EOMI. Ears, Nose, Throat: normal pharynx, normal ENT inspection, hearing grossly normal Neck: normal inspection, supple, full range of motion Respiratory: chest non-tender, no respiratory distress, rhonchi, wheezing Cardiovascular: regular rate/rhythm, normal peripheral pulses Peripheral Pulses: 2+ radial (R), 2+ radial (L) Gastrointestinal: normal bowel sounds, soft, no organomegaly, tenderness ( EPIGASTRIC ) Back: normal inspection, normal range of motion, no vertebral tenderness, RIGHT- SIDED PARASPINOUS MUSCLES TENDER TO PALPATION IN THE LUMBAR REGION. nO MIDLINE TENDERNESS NO STEP-OFFS OR DEFORMITIES NO BRUISING SWELLING ABRASIONS OR RASHES Extremities: normal inspection Neurologic/Psych: no motor/sensory deficits, awake, alert, oriented x 3, normal gait Skin: intact, normal color, warm/dry Core Measures ACS in differential dx? No CVA/TIA Diagnosis: No Sepsis Present: No Sepsis Focused Exam Completed? No (Levi SIMPSON,Aubrey) Progress Differential Diagnoses I considered the following diagnoses in my evaluation of the patient: [Acute bronchitis, pneumonia, pancreatitis, gastroenteritis, COPD/asthma, pulmonary embolism, acute coronary syndrome] Plan of Care: Orders Procedure Date/time Status Consistent Carbohydrate 2 05/25 B Active CBC WITHOUT DIFFERENTIAL 05/25 0600 Active BASIC ELECTROLYTES PLUS BUN&CR 05/25 0600 Active LOWER RESPIRATORY CULTURE 05/24 1933 Active Pathway - chart 05/24 1812 Active House Staff 05/24 1812 Active Patient Data 05/24 1812 Active Code Status 05/[address] in observation 05/24 1751 Active Patient Data 05/24 1729 Active ED Holding Orders 05/24 1721 Active Vital Signs 05/24 1721 Active Code Status 05/24 1721 Complete RAPID VIRAL INFLUENZA A 05/24 1715 Active LACTIC ACID 05/24 1618 Active AEROSOL (GEN) 05/24 1352 Complete Add-on Test (ER Only) 05/24 1352 Active D-DIMER 05/24 1326 Complete URINALYSIS 05/24 1318 Complete TROPONIN LEVEL 05/24 1318 Complete LIPASE 05/24 1318 Complete LACTIC ACID 05/24 1318 Complete COMPREHENSIVE METABOLIC PANEL 05/24 1318 Complete CBC WITHOUT DIFFERENTIAL 05/24 1318 Complete EKG 05/24 1318 Active SWALLOW EVALUATION 05/24 UNK Active VTE Mechanical Prophylaxis 05/24 UNK Active MISTAKE 05/24 UNK Active Current Medications Sig/Zach Start time Last Medication Dose Stop Time Status Admin Atorvastatin Calcium 40 MG 1700 05/25 1700 AC (Lipitor) Clopidogrel Bisulfate 75 MG DAILY 05/25 1000 AC (Plavix) Escitalopram Oxalate 10 MG DAILY 05/25 1000 AC (Lexapro) Lamotrigine 50 MG DAILY 05/25 1000 AC (LaMICtal) Donepezil HCl 5 MG QPM 05/24 220 AC (Aricept) Gabapentin 300 MG QPM 05/24 220 AC (Neurontin) Guaifenesin 600 MG Q12 05/24 2199 AC (Mucinex) Methylprednisolone 40 MG Q8 05/24 2199 AC (Solumedrol) Pantoprazole Sodium 40 MG DAILY 05/24 171 AC 05/24 (Protonix) 1729 Laboratory Tests 05/24/17 171: Urine Color YEL, Urine Clarity CLEAR, Urine pH 5.5, Ur Specific [place] >= 1.030 , Urine Protein TRACE H, Urine Ketones NEG, Urine Nitrite NEG, Urine Bilirubin NEG, Urine Urobilinogen 0.2, Ur Leukocyte Esterase NEG, Ur Microscopic SEDIMENT EXAMINED, Urine RBC RARE, Urine WBC RARE, Ur Epithelial Cells MOD H, Urine Bacteria FEW H, Urine Mucus MOD H, Urine Hemoglobin NEG, Urine Glucose NEG 05/24/17 1352: Anion Gap 13, Estimated GFR > 60, BUN/Creatinine Ratio 34.4 H, Glucose 144 H, Lactic Acid 1.8, Calcium 9.6, Total Bilirubin 0.6, AST 20, ALT 20, Alkaline Phosphatase 97, Troponin I < 0.01, Total Protein 7.0, Albumin 4.0, Globulin 3.0, Albumin/Globulin Ratio 1.3, Lipase 68, D-Dimer High Sensitivty < 200, CBC w Diff NO MAN DIFF REQ, RBC 4.00 L, MCV 86.9, MCH 28.3, MCHC 32.6 L, RDW 14.5, MPV 8.3, Gran % 59.1, Lymphocytes % 32.1, Monocytes % 8.1, Eosinophils % 0.3, Basophils % 0.4, Absolute Granulocytes 6.1, Absolute Lymphocytes 3.3, Absolute Monocytes 0.8 H, Absolute Eosinophils 0, Absolute Basophils 0 Microbiology 05/24 1932 LOWER RESP: Respiratory Culture - ORD 05/24 1932 LOWER RESP: Gram Stain - ORD 05/24 1715 NASOPHARYN: Influenza Virus A & B Rapid Smear - ORD Patient seen and evaluated. She is currently nauseous and has vomiting. Vital signs are stable no hypoxia. She does have diffuse wheezing and rhonchi. Patient was medicated with IV Solu-Medrol and IV Reglan. She received IM Zofran by EMS without much improvement. We'll recheck labs EKG. Patient given a DuoNeb. We'll check a CT scan of the chest on the pelvis. Dimer is negative troponin and negative EKG stable. CT scan does not show any evidence of pneumonia or acute abdomen. Patient is feeling better after antinausea medicine but is still having severe shortness of breath. She was and related in the emergency department and desaturated to 90%. She became visibly short of breath. She has been seen here several times over the past 1-2 months for this without much improvement. She's been taking oral prednisone and oral antibiotics without improvement. She has multiple medical comorbidities and is 72 years old. Discharging her could result in negative health effects. Patient will be admitted for observation. She'll require IV steroids, DuoNeb, monitoring of vital signs, serial labs and pulmonology. Case discussed with Dr. Singh he agrees. Diagnostic Imaging: Viewed by Me: CT Scan. Discussed w/RAD: CT Scan. Radiology Impression: PATIENT: PRETTY ORBERTS PRESENT AGE : 72 PATIENT ACCOUNT NO: [id number] : 44 LOCATION: [facility] ORDERING PHYSICIAN: Aubrey SIMPSON SERVICE DATE: 05/24/17 EXAM TYPE: CAT - CT ABD & PELVIS W/O IV CONTRAS; CT CHEST WO IV CONTRAST EXAMINATION: CT ABDOMEN AND PELVIS WITHOUT CONTRAST CLINICAL INFORMATION: Diffuse abdominal and back pain, cough, shortness of breath COMPARISON: None TECHNIQUE: Multidetector volumetric imaging was performed from the superior aspect of the liver through the pubic symphysis. Sagittal and coronal reformatted images were obtained on the technologist's workstation. Noncontrast study limits this exam. CT chest Centrally there is no bulky adenopathy. The thoracic inlet is grossly within normal limits. Axillary regions within normal limits. Again this is a noncontrast study but the hilar structures do not appear enlarged. Thickening in the region of the distal esophagus but this is also seen previously. Recommend direct visualization. Imaging the lung sawant. Right lung; No significant infiltrate or effusion. Small pleural-based nodule right lung base. Image 31. 2 mm. Small nodule on series 6. Image 61. Right upper lung. 3 mm. Small nodule series 6. Image 36. 3 mm.. Left lung; Minimal left basilar atelectasis no significant infiltrate or effusion. Small nodule image 78 series 6. Upper abdomen Again this is a noncontrast study. The liver and spleen are grossly normal in morphology. Hiatal hernia is present. Region the pancreas is unremarkable. Once again some fullness in the left adrenal. Unchanged from previous. There is no bulky adenopathy. The there is no free fluid here. No bulky adenopathy. The bowel pattern is felt to be within normal limits. Some scattered calcification within the aorta. In the pelvis there is no free fluid. Ureters are nondilated into the bladder. Bowel pattern nonobstructing. IMPRESSION: No acute finding. The chest no significant infiltrate or effusion. No acute finding the abdomen pelvis. Bowel pattern is within normal limits. No suspicious fluid collection. A normal appendix is not visualized but no definitive suspicion around the cecum. Some small nodules in the lung zones. If there are risk factors for lung malignancy recommended follow-up low-dose noncontrast 9 months to one year DICTATED BY: Ajay Espinosa MD DATE/TIME DICTATED:05/24/171555 HOT TAR ROOFER HELPER:RAYSA DATE/TIME TRANSCRIBED:1555 CONFIDENTIAL, DO NOT COPY WITHOUT APPROPRIATE AUTHORIZATION. < Electronically signed in Other Vendor System> Initial ED EKG: normal sinus rhythm, LVH, NONSPECIFIC INTERVENTRICULAR CONDUCTION DELAY Prior EKG: unchanged Rhythm Strip: normal sinus rhythm (Black PA,Aubrey) Departure Departure Disposition: STILL A PATIENT Condition: Stable Clinical Impression Primary Impression: Hypoxia Secondary Impressions: Acute bronchitis Qualifiers: Bronchitis organism: unspecified organism Qualified Code: J20.9 - Acute bronchitis, unspecified Referrals: Dioni MARQUES,Sally Arias (PCP/Family) Departure Forms: Customer Survey General Discharge Information Observation Note Spoke With: Vic Zhu MD Physician Advisor Notified: AJAY SINGH DO Place Patient In: Non-ED OBS Care Area Rationale for Observation: My rational for observation is as follows patient desaturated from 90% to ambulate in. She became visibly short of breath. She is seen in ER 3 times for similar complaints without improvement. [IV Solu-Medrol, DuoNeb, serial labs, monitoring of vital signs, pulmonology]. (Aubrey Box) PA/VENEER PRODUCTION MACHINE OPERATOR Co-Sign Statement Statement: ED Attending supervision documentation- [x] I saw and evaluated the patient. I have also reviewed all the pertinent lab results and diagnostic results. I agree with the findings and the plan of care as documented in the PA's/VENEER PRODUCTION MACHINE OPERATOR's documentation. [] I have reviewed the ED Record and agree with the PA's/VENEER PRODUCTION MACHINE OPERATOR's documentation. [] Additions or exceptions (if any) to the PAs/VENEER PRODUCTION MACHINE OPERATOR's note and plan are summarized below: [] I have seen and personally examined the patient. She is 72 years old with hypoxia on ambulation. She is being placed in inpatient observation for further care. (Jose LAMB,Ajay Dalton) Critical Care Note Critical Care Note Critical Care Time: 30-74 min (Aubrey Box)
[2017-05-24 14:09] LABS: ABSOLUTE BASOPHIL COUNT 0 /CUMM (0.0-0.2); ABSOLUTE EOSINOPHIL COUNT 0 /CUMM (0.0-0.7); ABSOLUTE LYMPH COUNT 3.3 /CUMM (1.2-3.4); ABSOLUTE MONOCYTE COUNT 0.8 /CUMM (0.10-0.60); BASOPHIL % 0.4 % (0.0-2.0); MEAN CORPUSCULAR HGB 28.3 PG (27.0-31.0)
[2017-05-24 14:13] LABS: ABSOLUTE GRANULOCYTE CT 6.1 /CUMM (1.4-6.5); EOSINOPHIL % 0.3 % (0-5); GRANULOCYTE % 59.1 % (42.2-75.2); HEMATOCRIT 34.8 % (37-47); MEAN CORPUSCULAR HGB CONC 32.6 G/DL (33.0-37.0); MEAN CORPUSCULAR VOLUME 86.9 FL (81.0-99.0); MEAN PLATELET VOLUME 8.3 FL (7.4-10.4); PLATELET COUNT 245 /CUMM (130-400); RBC DISTRIBUTION WIDTH 14.5 % (11.5-14.5)
[2017-05-24 14:15] LABS: WHITE BLOOD CELL COUNT 10.3 /CUMM (4.8-10.8)
--- NOTE | 2017-05-24 16:08 | CT SCAN REPORT ---
EXAMINATION: CT ABDOMEN AND PELVIS WITHOUT CONTRAST CLINICAL INFORMATION: Diffuse abdominal and back pain, cough, shortness of breath COMPARISON: None TECHNIQUE: Multidetector volumetric imaging was performed from the superior aspect of the liver through the pubic symphysis. Sagittal and coronal reformatted images were obtained on the technologist's workstation. Noncontrast study limits this exam. CT chest Centrally there is no bulky adenopathy. The thoracic inlet is grossly within normal limits. Axillary regions within normal limits. Again this is a noncontrast study but the hilar structures do not appear enlarged. Thickening in the region of the distal esophagus but this is also seen previously. Recommend direct visualization. Imaging the lung sawant. Right lung; No significant infiltrate or effusion. Small pleural-based nodule right lung base. Image 31. 2 mm. Small nodule on series 6. Image 61. Right upper lung. 3 mm. Small nodule series 6. Image 36. 3 mm.. Left lung; Minimal left basilar atelectasis no significant infiltrate or effusion. Small nodule image 78 series 6. Upper abdomen Again this is a noncontrast study. The liver and spleen are grossly normal in morphology. Hiatal hernia is present. Region the pancreas is unremarkable. Once again some fullness in the left adrenal. Unchanged from previous. There is no bulky adenopathy. The there is no free fluid here. No bulky adenopathy. The bowel pattern is felt to be within normal limits. Some scattered calcification within the aorta. In the pelvis there is no free fluid. Ureters are nondilated into the bladder. Bowel pattern nonobstructing. IMPRESSION: No acute finding. The chest no significant infiltrate or effusion. No acute finding the abdomen pelvis. Bowel pattern is within normal limits. No suspicious fluid collection. A normal appendix is not visualized but no definitive suspicion around the cecum. Some small nodules in the lung zones. If there are risk factors for lung malignancy recommended follow-up low-dose noncontrast 9 months to one year
--- NOTE | 2017-05-24 17:09 | History & Physical ---
Adali Campos 05/24/17 1708: General Information and HPI History of Present Illness: Ms. Sotomayor is a 71-year-old female with a past medical history of HTN, HLD, ischemic stroke (11/2014) with left-sided neurological deficit, currently on Plavix, seizures (2015, 2017), ANTONIO, hypertension, IDDM, urinary incontinence, C.difficile (2016) recently diagnosed with acute bronchitis, SIB PCP after vomiting in the office after a neb treatment. Patient reports she was in her usual state of health before arriving at her PCP's office for a routine visit whom she sees every 3 months. She has been having a persistent cough with light green sputum production and wheezing. After a nebulizing treatment at her PCP today she began to have left-sided chest pain with deep inspiration, lightheadedness and SOB. She was treated for influenza one month ago with Tamiflu x 5 days, at the time she had a cough with nasal congestion. Approximately 5 days ago she was seen in the ED for acute bronchitis and was given prednisone and doxycycline twice a day x 7 days of which she has 2 days left. She reports Intermittent swelling in legs. She has had a good appetite for the last 2 days, prior to that her appetite was poor due to bronchitis. She denies fever, chills, palpitations, blurry vision, bowel symptoms. At baseline she walks with a cane for ambulation. Allergies/Medications Allergies: Coded Allergies: Penicillins (Intermediate, HIVES 05/19/17) Home Med list Albuterol Sulfate (Proair Hfa) 90 MCG HFA.AER.AD 2 PUF INH Q4-6 PRN PRN COUGH/ SOB Atenolol 25 MG TABLET 75 MG PO DAILY HTN (Reported) Atorvastatin Calcium (Lipitor) 40 MG TABLET 1 TAB PO DAILY CHOLESTEROL ( Reported) Azelastine HCl (Astepro) 205.5 MCG (0.15 %) SPRAY.PUMP 2 SPRAY NASB DAILY POST NASAL DRIP (Reported) Cholecalciferol (Vitamin D3) (Vitamin D) 400 UNIT TABLET 1 TAB PO QFRI SUPPLEMENT (Reported) Clopidogrel Bisulfate (Plavix) 75 MG TABLET 1 TAB PO DAILY STROKE (Reported) Donepezil HCl (Aricept) 5 MG TABLET 1 TAB PO QPM DEMENTIA (Reported) Escitalopram Oxalate 10 MG TABLET 1 TAB PO DAILY DEPRESSION (Reported) Gabapentin (Neurontin) 300 MG CAPSULE 1 CAP PO QPM HEADACHE (Reported) Lacosamide (Vimpat) 100 MG TABLET 1 TAB PO BID SEIZURES (Reported) Lamotrigine 25 MG TABLET 2 TAB PO DAILY SEIZURES (Reported) Lidocaine 5 % ADH..PATCH 1 PAT TOP PRN PAIN (Reported) Linagliptin (Tradjenta) 5 MG TABLET 0.5 TAB PO DAILY DIABETES (Reported) Pantoprazole Sodium 40 MG TABLET.DR 1 TAB PO DAILY ACID REFLUX (Reported) Prochlorperazine Maleate 5 MG TABLET 1 TAB PO PRN N/V (Reported) Past History Travel History Traveled to [place] past 21 day No Medical History Neurological: CVA, seizure, headaches EENT: NONE Cardiovascular: hypertension, hyperlipidemia Respiratory: NONE Gastrointestinal: H/O CDIFF 03/2015 Hepatic: NONE Renal: CKD Musculoskeletal: NONE Psychiatric: depression Endocrine: diabetes Blood Disorders: NONE Cancer(s): NONE 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 self Services at Home: None Primary Language: Egyptian ETOH Use: denies use Illicit Drug Use: denies illicit drug use Functional Ability ADLs Independent: dressing, eating, toileting, bathing. Ambulation: cane IADLs Needs Assist: finances, food prep, transportation, medication admin. Review of Systems Review of Systems Constitutional: Reports: see HPI. Exam & Diagnostic Data Last 24 Hrs of Vital Signs/I&O Vital Signs Date Time Temp Pulse Resp B/P B/P Pulse O2 O2 Flow FiO2 Mean Ox Delivery Rate 05/24 1355 96 05/24 1322 96 05/24 1320 99.0 60 18 172/82 96 Room Air Intake & Output 05/24 1600 05/24 0800 05/24 0000 Intake Total Output Total Balance Patient 180 lb Weight Weight Reported by Patient Measurement Method Physical Exam General Appearance Alert, Oriented X3, Cooperative HEENT Atraumatic, PERRLA, EOMI, Mucous Membr. moist/pink Cardiovascular Regular Rate, Normal S1, Normal S2, No Murmurs Lungs BL wheezing Abdomen Epigastric tenderness on palpation Extremities No Edema, Normal Pulses Last 24 Hrs of Labs/Pancho: Laboratory Tests 05/24/17 1352: Anion Gap 13, Estimated GFR > 60, BUN/Creatinine Ratio 34.4 H, Glucose 144 H, Lactic Acid 1.8, Calcium 9.6, Total Bilirubin 0.6, AST 20, ALT 20, Alkaline Phosphatase 97, Troponin I < 0.01, Total Protein 7.0, Albumin 4.0, Globulin 3.0, Albumin/Globulin Ratio 1.3, Lipase 68, D-Dimer High Sensitivty < 200, CBC w Diff NO MAN DIFF REQ, RBC 4.00 L, MCV 86.9, MCH 28.3, MCHC 32.6 L, RDW 14.5, MPV 8.3, Gran % 59.1, Lymphocytes % 32.1, Monocytes % 8.1, Eosinophils % 0.3, Basophils % 0.4, Absolute Granulocytes 6.1, Absolute Lymphocytes 3.3, Absolute Monocytes 0.8 H, Absolute Eosinophils 0, Absolute Basophils 0 Diagnostic Data EKG Results NS HR 59 [address]Tc [address] ABD & PELVIS W/O IV CONTRAS; CT CHEST WO IV CONTRAST IMPRESSION: No acute finding. The chest no significant infiltrate or effusion. No acute finding the abdomen pelvis. Bowel pattern is within normal limits. No suspicious fluid collection. A normal appendix is not visualized but no definitive suspicion around the cecum. Some small nodules in the lung zones. If there are risk factors for lung malignancy recommended follow-up low-dose noncontrast 9 months to one year Assessment/Plan Assessment: Ms. Sotomayor is a 71-year-old female with a past medical history of HTN, HLD, ischemic stroke (11/2014) with left-sided neurological deficit, currently on Plavix, seizures (2015, 2016), ANTONIO, hypertension, IDDM, urinary incontinence, C.difficile (2016) recently diagnosed with acute bronchitis, SIB PCP after vomiting in the office after a neb treatment. NV most likely secondary to viral etiology Patient's presentation seems related to her recent influenza infection and persistent URI symptoms. Patient passed bedside swallow eval * Placed on 23 hour observation * Influenza test * Resume PPI * Orthostats * IV ondansetron for nausea Dyspnea most likely secondary to post viral bronchitis Her atypical chest pain with negative troponins and no signs of ACS on ECG seems pleuritic in nature * TRC/nebs PRN * Guaifenesin twice a day * IV methylprednisolone 40 mg q8 * Resume meds except Atenolol due to bronchospasm * Watch off antibiotics Hx of HTN, HLD, CVA * Resume home meds Code: FULL As Ranked By This Provider Problem List: 1. Acute bronchitis Qualifiers Bronchitis organism: unspecified organism Qualified Code: J20.9 - Acute bronchitis, unspecified 2. Lightheadedness 3. Chest pain, unspecified Core Measures/Misc (11/21) Acute Coronary Syndrome ACS Diagnosis: No Congestive Heart Failure Congestive Heart Failure Diagnosis No Cerebrovascular Accident CVA/TIA Diagnosis: No VTE (View Protocol) VTE Risk Factors Age>40 No Mechanical VTE Prophylaxis d/t N/A MechProphylax Ordered No VTE Pharm Prophylaxis d/t NA PharmProphylax ordered Sepsis (View protocol) Sepsis Present: No Rodri Mcdonough MD 05/24/17 1720: Resident Review Statement Resident Statement: examined this patient, discussed with internet consultant, agreed with internet consultant Other Findings: Patient is a 72-year-old female BIBA from her doctor's office, secondary to chest pain after nebulization.During the transport EMS gave patient Zofran for nausea. Most of the history is taken from the daughter as the patient is Egyptian- speaking. According to the daughter, patient was diagnosed as having fluid in April 2017 and was treated with Tamiflu. She did not completely recovered as she was having some residual cough. She denies for any shortness of breath, fever, chills, loss of appetite. 10 days ago she started having breathing problem in terms of dry cough and shortness of breath on walking. She came to the [facility] ED on May 19 and was given a course of antibiotic including doxycycline, nebulization and steroids for 7 days and she has 2 days of medication left. She did not improved and got worse since last 2 days. She went to her primary physician's office today and she was given nebulization and afterwards she started having chest pain. She denies any fever, chills, nausea, vomiting, abdominal pain, diarrhea, weakness in any part of the body. Of note she was having history of intermittent chest pain and was evaluated at [place] office, and was told that she does not have any stable angina. Of note she was also having episodes of choking with a solid food but denies for any episodes of aspiration. Past medical history CVA,ischemic stroke in November 2014 with left-sided neurological deficit, currently on Plavix History of C. difficile and 2016 chronic kidney disease History of tonic seizures 2017 Diabetes Depression hypertension Hyperlipidemia Dementia Personal history -she is basically from the [facility] and was getting most of her treatment over there she is in [facility] since last 3 years. She lives with her daughter. ED course- Vital signs-temperature 99.9, pulse 60, respiratory rate 18, blood pressure 172/ 82, SPO2 96% on room air. On physical examination -conscious, cooperative, alert 3, oral mucosa moist, neck no JVD, inspiratory and expiratory dry crackles, decreased air entry bilaterally, heart S1-S2 normal, abdomen distended, left upper and lower extremity 4/5 with chronic disuse atrophy. Blood workup-hemoglobin 11.4, hematocrit 34.8, platelet count 245, serum sodium 142, potassium 4.6, chloride 102, BUN 31, creatinine 0.9, glucose 144, serum lactic acid 1.8, calcium 9.6, total bilirubin 0.6, AST 20, ALT 20, alkaline phosphorus 97, troponin I less than 0.01, total protein 7.0, albumin 4.0, lipase 68, d-dimer less than 200, urine analysis - CT chest/abdomen pelvis-no any acute changes. Assessment and plan -patient is a 72-year-old female with past medical history of CVA left-sided residual weakness, seizures, diabetes, hypertension, hyperlipidemia presented with chief complaints of chronic cough and difficulty in the breathing. She was recently diagnosed with low a month ago and was exposed to family members having viral URI. She was having severe bronchospasm on examination. She was saturating very well at the rest but was desaturating on exertion. It seems she has post viral bronchitis. We will treat her with IV steroids, TRC/nebulization. She was also complaining of slight dizziness we will check orthostatic and if needed then IV fluids. Aspiration can be also in differential, according to the daughter patient had episodes of choking with solid foods but never had aspiration pneumonia. We did bedside swallow evaluation which patient passed. Will do a formal swallow evaluation. Post viral bronchitis - * We will observe the patient to general medicine floor * TRC/nebulization * Inj Solu-Medrol 80 mg IV 8 hourly * We will hold atenolol for a while and watch for any episodes of bronchospasm * We will follow patient off antibiotic * Lower respiratory tract culture, we will follow flu test * We will do swallow evaluation to rule out silent aspiration * We will start patient on inj pantoprazole 40 mg IV right eye * We will check orthostatic for dizziness. Type 2 diabetes * Fingerstick 3 times daily/at bedtime * NovoLog according to sliding scale Chronic medical condition -seizure, hyperlipidemia, dementia - * We will continue tablet clopidogrel, citalopram, laboratory seen, atorvastatin , gabapentin, donepezil CODE STATUS -full code DVT prophylaxis -GINA/heparin Diet -carbohydrate type II diet Observation Initial Note - I have personally examined PRETTY SOTOMAYOR on 05/24/17 at 1928. The disposition of PRETTY SOTOMAYOR is uncertain at this time and before a determination can be made, she requires a period of observation for the following reasons [bronchitis] Vic Zhu MD 05/24/17 2326: Attending MD Review Statement Attending Statement Attending MD Statement: examined this patient, discuss w/resident/PA/PURSE MAKER, agreed w/resident/PA/PURSE MAKER, reviewed EMR data (avail) Attending Assessment/Plan: 72F PMH HTN, HLD, ischemic stroke (11/2014) with left-sided neurological deficit, currently on Plavix, seizures (2015, 2016), ANTONIO, hypertension, IDDM, urinary incontinence, C.difficile (2016) with URI/influenza 3 weeks ago, has been deteriorating since, with worsening wheezing, SOB, and dyspnea with exertion. No new infectious symptoms, never smoker. Wheezing on exam, desaturates to 90 on room air with ambulation. Otherwise well, comfortable, and speaking in full sentences without having to take a breath. Labs and imaging normal. 1. Post-viral reactive airway disease 2. Hypoxia Plan - Observation in general medicine - Solumedrol with rapid taper - Nebulizer treatments - No antibiotics - Sputum culture if produceable - Continue home medications - DVT PPx
[2017-05-24 22:58] VITALS: BP 130/80
[2017-05-25 06:28] VITALS: BP 130/84
--- NOTE | 2017-05-25 07:35 | PN- Housestaff ---
Adali Campos 05/25/17 0735: Subjective Follow-up For: Postviral bronchitis Subjective: Patient reports feeling much better today but has a persistent cough without sputum production this morning No acute events overnight Review of Systems Constitutional: Reports: see HPI. Objective Last 24 Hrs of Vital Signs/I&O Vital Signs Date Time Temp Pulse Resp B/P B/P Pulse O2 O2 Flow FiO2 Mean Ox Delivery Rate 05/25 0800 97 Room Air Room Air 05/25 0628 97.8 60 20 130/84 95 Room Air 05/25 0000 Room Air 05/24 2258 98.0 60 18 130/80 93 Room Air 05/24 2018 Room Air 05/24 2006 98.6 69 18 139/64 93 Room Air 05/24 1715 98.6 59 18 142/80 95 Room Air 05/24 1355 96 05/24 1322 96 05/24 1320 99.0 60 18 172/82 96 Room Air Intake & Output 05/25 1600 05/25 0800 05/25 0000 Intake Total 240 240 Output Total Balance 240 240 Intake, Oral 240 240 Patient 180 lb Weight Physical Exam General Appearance: Alert, Oriented X3, Cooperative, No Acute Distress Cardiovascular: Regular Rate, Normal S1, Normal S2, No Murmurs Lungs: Clear to Auscultation, Normal Air Movement Abdomen: Normal Bowel Sounds, Soft, No Tenderness Current Medications: Current Medications Sig/Zach Start time Last Medication Dose Route Stop Time Status Admin Albuterol Sulfate 3 ML ONCE ONE 05/24 1345 DC 05/24 INH 05/24 1346 1351 Atorvastatin Calcium 40 MG 1700 05/25 1700 AC PO Clopidogrel Bisulfate 75 MG DAILY 05/25 1000 AC 05/25 PO 0844 Donepezil HCl 5 MG QPM 05/24 2200 AC 05/24 PO 2310 Escitalopram Oxalate 10 MG DAILY 05/25 1000 AC 05/25 PO 0844 Gabapentin 300 MG QPM 05/24 2200 AC 05/24 PO 2310 Guaifenesin 600 MG Q12 05/24 2200 AC 05/25 PO 0844 Influenza Virus 0.5 ML ONCE ONE 05/25 1000 DC Vaccine IM 05/25 1001 Insulin Aspart 0 TIDAC 05/25 0800 DC SC Insulin Aspart 4 UNITS ONCE ONE 05/24 2345 DC 05/24 SC 05/24 2346 2350 Insulin Aspart 0 TIDAC/HS 05/24 2300 AC 05/25 SC 0806 Insulin Aspart 0 TIDAC 05/24 2230 DC SC Ipratropium [place] 2.5 ML ONCE ONE 05/24 1345 DC 05/24 INH 05/24 1346 1351 Lamotrigine 50 MG DAILY 05/25 1000 AC 05/25 PO 0844 Methylprednisolone 40 MG Q8 05/24 2200 DC 05/25 IV 0603 Methylprednisolone 0 .STK-MED ONE 05/24 1342 DC .ROUTE Methylprednisolone 125 MG ONCE ONE 05/24 1330 DC 05/24 IV 05/24 1331 1358 Metoclopramide HCl 0 .STK-MED ONE 05/24 1342 DC .ROUTE Metoclopramide HCl 10 MG ONCE ONE 05/24 1330 DC 05/24 IV 05/24 1331 1358 Omeprazole 40 MG DAILY AC 05/26 0700 AC PO Pantoprazole Sodium 0 .STK-MED ONE 05/24 1730 DC IV Pantoprazole Sodium 40 MG DAILY 05/24 1716 DC 05/25 IV 0844 Patient Medication 1 ED ONE ONE 05/25 1030 Teaching ED 05/25 1031 Last 24 Hrs of Lab/Pancho Results Last 24 Hrs of Labs/Mics: Laboratory Tests 05/25/17 0720: Anion Gap 13, Estimated GFR > 60, BUN/Creatinine Ratio 40.0 H, CBC w Diff NO MAN DIFF REQ, RBC 4.00 L, MCV 86.9, MCH 28.5, MCHC 32.8 L, RDW 14.3, MPV 8.4, Gran % 84.0 H, Lymphocytes % 13.1 L, Monocytes % 2.9, Eosinophils % 0, Basophils % 0, Absolute Granulocytes 7.8 H, Absolute Lymphocytes 1.2, Absolute Monocytes 0.3, Absolute Eosinophils 0, Absolute Basophils 0 05/24/17 1716: Urine Color YEL, Urine Clarity CLEAR, Urine pH 5.5, Ur Specific [place] >= 1.030 , Urine Protein TRACE H, Urine Ketones NEG, Urine Nitrite NEG, Urine Bilirubin NEG, Urine Urobilinogen 0.2, Ur Leukocyte Esterase NEG, Ur Microscopic SEDIMENT EXAMINED, Urine RBC RARE, Urine WBC RARE, Ur Epithelial Cells MOD H, Urine Bacteria FEW H, Urine Mucus MOD H, Urine Hemoglobin NEG, Urine Glucose NEG 05/24/17 1352: Anion Gap 13, Estimated GFR > 60, BUN/Creatinine Ratio 34.4 H, Glucose 144 H, Lactic Acid 1.8, Calcium 9.6, Total Bilirubin 0.6, AST 20, ALT 20, Alkaline Phosphatase 97, Troponin I < 0.01, Total Protein 7.0, Albumin 4.0, Globulin 3.0, Albumin/Globulin Ratio 1.3, Lipase 68, D-Dimer High Sensitivty < 200, CBC w Diff NO MAN DIFF REQ, RBC 4.00 L, MCV 86.9, MCH 28.3, MCHC 32.6 L, RDW 14.5, MPV 8.3, Gran % 59.1, Lymphocytes % 32.1, Monocytes % 8.1, Eosinophils % 0.3, Basophils % 0.4, Absolute Granulocytes 6.1, Absolute Lymphocytes 3.3, Absolute Monocytes 0.8 H, Absolute Eosinophils 0, Absolute Basophils 0 Microbiology 05/24 2025 LOWER RESP: Respiratory Culture - COLB 05/24 2025 LOWER RESP: Gram Stain - COLB 05/24 2025 NASOPHARYN: Influenza Virus A & B Rapid Smear - COMP Assessment/Plan Assessment: Ms. Sotomayor is a 71-year-old female with a past medical history of HTN, HLD, ischemic stroke (11/2014) with left-sided neurological deficit, currently on Plavix, seizures (2015, 2016), ANTONIO, hypertension, IDDM, urinary incontinence, C.difficile (2016) recently diagnosed with acute bronchitis, SIB PCP after vomiting in the office after a neb treatment. NV most likely secondary to viral etiology Patient's presentation seems related to her recent influenza infection and persistent URI symptoms. Patient passed bedside swallow eval * Placed on 23 hour observation, patient stable for discharge today * Influenza test negative * Continue oral PPI * IV ondansetron for nausea * Patient will be given Symbicort upon discharge. Given her history of DM, recent steroids taper 5 days ago and minimal wheezing we will refrain from giving her a steroids taper Post-viral bronchitis with bronchospasm Her atypical chest pain with negative troponins and no signs of ACS on ECG seems pleuritic in nature * TRC/nebs PRN * IV methylprednisolone 40 mg q8 * Continue meds except Atenolol due to bronchospasm * Watch off antibiotics Hx of HTN, HLD, CVA * Continue home meds Code: FULL Problem List: 1. Bronchospasm with bronchitis, acute Pain Ratin Pain Location: NA Pain Goal: Remain pain free Pain Plan: NA Tomorrow's Labs & Rationales: none Farrah MARQUESPriscila 05/25/17 1402: Attending MD Review Statement Attending Statement Attending MD Statement: examined this patient, discuss w/resident/PA/APPLICATION ARCHITECT, agreed w/resident/PA/APPLICATION ARCHITECT, reviewed EMR data (avail), discussed with nursing, discussed with case mgmt, reviewed images Attending Assessment/Plan: Patient feels well. She feels like her shortness of breath has improved. She is a 72-year-old was never smoked, has hypertension, hyperlipidemia and diabetes who was brought in for observation for a post infectious hyperreactive airway disease/bronchospastic disease. She was started on IV steroids empirically but she is not wheezing at all and I don't think she needs ongoing by mouth steroids. We have given her a prescription for a LABA/ inhaled steroid combination. I explained to her at length that she needs to use this inhaler for at least 2-4 weeks with close outpatient follow-up. Also explained the possibility of hoarseness of voice with the inhaler and the need to gargle her mouth. She is stable to leave with close outpatient follow-up.
[2017-05-25 08:10] LABS: ABSOLUTE BASOPHIL COUNT 0 /CUMM (0.0-0.2); ABSOLUTE EOSINOPHIL COUNT 0 /CUMM (0.0-0.7); ABSOLUTE GRANULOCYTE CT 7.8 /CUMM (1.4-6.5); ABSOLUTE LYMPH COUNT 1.2 /CUMM (1.2-3.4); ABSOLUTE MONOCYTE COUNT 0.3 /CUMM (0.10-0.60); BASOPHIL % 0 % (0.0-2.0); EOSINOPHIL % 0 % (0-5); HEMATOCRIT 34.8 % (37-47); MEAN CORPUSCULAR HGB 28.5 PG (27.0-31.0); MEAN CORPUSCULAR HGB CONC 32.8 G/DL (33.0-37.0); MEAN CORPUSCULAR VOLUME 86.9 FL (81.0-99.0); MEAN PLATELET VOLUME 8.4 FL (7.4-10.4); RBC DISTRIBUTION WIDTH 14.3 % (11.5-14.5); WHITE BLOOD CELL COUNT 9.3 /CUMM (4.8-10.8)
[2017-05-25] MEDS ORDERED: SYMBICORT 16010.2 GM INH (09:31)
--- NOTE | 2017-05-25 09:32 | Patient Discharge Instructions ---
Discharge Instructions General Discharge Information You were seen/treated for: Trouble breathing Post viral bronchitis You had these procedures: none Special Instructions: Follow up with your PCP within 1 week after discharge You are being started on a new inhaler for 2-4 weeks as needed. This medication may cause hoarseness. If that happens, wait 20 mins and gargle to make sure medications goes down the widepipe Diet Recommended Diet: Diabetic Activity Full Activity/No Limits: Yes Acute Coronary Syndrome Inclusion Criteria At DC or during hospital stay patient has or had the following: ACS DIAGNOSIS No Discharge Core Measures Meds if any: Prescribed or Continued at Discharge Meds if any: NOT Prescribed or Continued at Discharge Congestive Heart Failure Inclusion Criteria At DC or during hospital stay patient has or had the following: CHF DIAGNOSIS No Discharge Core Measures Meds if any: Prescribed or Continued at Discharge Meds if any: NOT Prescribed or Continued at Discharge Cerebrovascular accident Inclusion Criteria At DC or during hospital stay patient has or had the following: CVA/TIA Diagnosis No Discharge Core Measures Meds if any: Prescribed or Continued at Discharge Meds if any: NOT Prescribed or Continued at Discharge Venous thromboembolism Inclusion Criteria VTE Diagnosis No VTE Type NONE VTE Confirmed by (Test) NONE Discharge Core Measures - Per Current guidelines, there needs to be overlap - treatment for the first 5 days of Warfarin therapy. - If discharged on Warfarin prior to 5 days of - overlap therapy, the patient will need to be - assessed for post discharge needs including - *Post discharge parental anticoagulation - *Warfarin and/or parental anticoagulation education - *Follow up date to check INR post discharge At least 5 days overlap therapy as Inpatient No Meds if any: Prescribed or Continued at Discharge Note: Overlap Therapy is Warfarin and Anticoagulant Meds if any: NOT Prescribed or Continued at Discharge
[2017-05-25 09:35] LABS: PLATELET COUNT 233 /CUMM (130-400)
== END 2017-05-25 11:58 | disposition home health service (06) ==
LOC: ERH 13:15 → 2NB 17:51 → ERHI 17:51 → ENRESERV 19:02 → 2NB 20:31 → ENPENDDIS 05-25 09:49 → ENTRNSPT 05-25 11:32 → EDTRNSPT 05-25 11:53 → EDTRNSPTSTS 05-25 11:53 → 2NB 05-25 11:58 → CMPTRNSPT 05-25 11:59
PROVIDERS: Physician Assistant Medical; Student in an Organized Health Care Education/Training Program
DX: J20.9 Acute bronchitis, unspecified (principal); R07.89 Other chest pain; R06.00 Dyspnea, unspecified; R11.2 Nausea with vomiting, unspecified; R09.02 Hypoxemia; F03.90 Unspecified dementia, unspecified severity, without behavioral disturbance, psychotic disturbance, mood disturbance, and anxiety; I12.9 Hypertensive chronic kidney disease with stage 1 through stage 4 chronic kidney disease, or unspecified chronic kidney disease; E11.22 Type 2 diabetes mellitus with diabetic chronic kidney disease; N18.9 Chronic kidney disease, unspecified; Z79.84 Long term (current) use of oral hypoglycemic drugs; I63.9 Cerebral infarction, unspecified; G81.94 Hemiplegia, unspecified affecting left nondominant side; Z79.01 Long term (current) use of anticoagulants; R51 Headache; F32.9 Major depressive disorder, single episode, unspecified; R56.9 Unspecified convulsions; R32 Unspecified urinary incontinence
CPT/HCPCS: 1263; 6040; 36592; 74176; 81001; 82436; 87070; 87804; 87804-59; 93005; 93010; 96372; 96374; 96375; 96376; 99291; G0378; J2765; J2920; J2930; Q2036

== ENCOUNTER 2017-05-31 13:18 | Inpatient (IN) | payer OTHER, MEDICARE ==
[~2017-05-31] VITALS: Ht 149.9 cm; Wt 81.2 kg
[~2017-05-31 13:18] MED LIST changes: +SYMBICORT 16010.2 GM INH
--- NOTE | 2017-05-31 13:41 | ED MVC/FALL/TRAUMA COMPLAINT ---
See Addendum History of Present Illness General Chief Complaint: Foot or Ankle Injury Stated Complaint: BIBA RT ANKLE PAIN S/P SLIP AND PARTIAL FALL Source: patient Exam Limitations: no limitations Vital Signs & Intake/Output Vital Signs & Intake/Output Vital Signs Date Time Temp Pulse Resp B/P B/P Pulse O2 O2 Flow FiO2 Mean Ox Delivery Rate 05/31 1906 98.2 18 177/78 96 Room Air 05/31 1519 97.9 58 18 150/67 97 Room Air 05/31 1339 Room Air 05/31 1319 98.7 62 18 164/81 98 Room Air Allergies Coded Allergies: Penicillins (Intermediate, HIVES 05/19/17) Reconcile Medications Albuterol Sulfate (Proair Hfa) 90 MCG HFA.AER.AD 2 PUF INH Q4-6 PRN PRN COUGH/ SOB Atenolol 25 MG TABLET 75 MG PO DAILY HTN (Reported) Atorvastatin Calcium (Lipitor) 40 MG TABLET 1 TAB PO DAILY CHOLESTEROL ( Reported) Azelastine HCl (Astepro) 205.5 MCG (0.15 %) SPRAY.PUMP 2 SPRAY NASB DAILY POST NASAL DRIP (Reported) Budesonide/Formoterol Fumarate (Symbicort 160-4.5 Mcg Inhaler) 160 MCG-4.5 MCG/ ACTUATION HFA.AER.AD 2 PUF INH BID Dyspnea Cholecalciferol (Vitamin D3) (Vitamin D) 400 UNIT TABLET 1 TAB PO QFRI SUPPLEMENT (Reported) Clopidogrel Bisulfate (Plavix) 75 MG TABLET 1 TAB PO DAILY STROKE (Reported) Donepezil HCl (Aricept) 5 MG TABLET 1 TAB PO QPM DEMENTIA (Reported) Escitalopram Oxalate 10 MG TABLET 1 TAB PO DAILY DEPRESSION (Reported) Gabapentin (Neurontin) 300 MG CAPSULE 1 CAP PO QPM HEADACHE (Reported) Lacosamide (Vimpat) 100 MG TABLET 1 TAB PO BID SEIZURES (Reported) Lamotrigine 25 MG TABLET 2 TAB PO DAILY SEIZURES (Reported) Lidocaine 5 % ADH..PATCH 1 PAT TOP PRN PAIN (Reported) Linagliptin (Tradjenta) 5 MG TABLET 0.5 TAB PO DAILY DIABETES (Reported) Pantoprazole Sodium 40 MG TABLET.DR 1 TAB PO DAILY ACID REFLUX (Reported) Prochlorperazine Maleate 5 MG TABLET 1 TAB PO PRN N/V (Reported) Triage Note: 72 YEAR OLD FEMALE TO ER VIA AMBULANCE AFTER SHE SLIPPED IN SHOWER AND FELL, [facility] STATES THAT SHE WAS WITH PT ASSISTING HER IN THE SHOWER AND WAS ABLE TO CATCH HER AND LOWER HER TO THE FLOOR, PT COMPLAINS OF L ANKLE PAIN SINCE SHE SLIPPED , SLIGHT SWELLING NOTED, [facility] ABLE TO PUT SLIGHT PRESSURE ON THE FOOT BUT SHE COMPALINS OF PAIN. PT MEDICATED WITH TYLENOL PER ORDER FOR 8/10 L ANKLE PAIN Triage Nurses Notes Reviewed? yes Onset: Abrupt Duration: hour(s): (1), constant, continues in ED, getting worse Timing: single episode today Severity: moderate, severe Severity Numbers: 8 Injuries/Fall Location: lower extremity Method of Injury: fall Loss of Consciousness: no loss of consciousness No Modifying Factors: none LMP (ages 10-50): post menopausal : No Patient currently breastfeeds: No HPI: 72-year-old female past medical history of seizures, CVA, diabetes presents for evaluation after a fall. Patient's granddaughter reports that patient was in the shower and she was helping her get out when her left ankle slipped on the shower floor causing an inversion injury. Patient denies neck she fall to the ground her granddaughter caught her. Patient reports pain located diffusely in the left lower extremity worse in the left ankle. She was unable to bear weight at home. The pain is located mostly in the lateral aspect of the ankle. It radiates up into her knee and hip. There is no head strike or loss of consciousness. No blood thinners. Patient's mental status is at baseline. She denies numbness or tingling no abdominal pain chest pain back pain or neck pain. (Levi SIMPSON,Aubrey) Past History Travel History Traveled to [place] past 21 day No Medical History Any Pertinent Medical History? 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 No (Aubrey Box) Review of Systems Review of Systems Constitutional: Reports: no symptoms. Eyes: Reports: no symptoms. Ears, Nose, Throat, Mouth: Reports: no symptoms. Respiratory: Reports: no symptoms. Cardiovascular: Reports: no symptoms. Gastrointestinal/Abdominal: Reports: no symptoms. Genitourinary: Reports: no symptoms. Musculoskeletal: Reports: see HPI, joint pain, joint swelling, muscle pain, muscle stiffness. Skin: Reports: no symptoms. Neurological/Psychological: Reports: no symptoms. All Other Systems: Reviewed and Negative (Aubrey Box) Physical Exam Physical Exam General Appearance: well developed/nourished, no apparent distress, alert, awake Head: atraumatic, normal appearance Eyes: Bilateral: normal appearance, PERRL, EOMI, normal inspection. Ears, Nose, Throat, Mouth: hearing grossly normal, moist mucous membrane, Tympanic normal Neck: normal inspection, supple, full range of motion Respiratory: normal breath sounds, chest non-tender, no respiratory distress, lungs clear Cardiovascular: regular rate/rhythm, normal peripheral pulses Peripheral Pulses: 2+ radial (R), 2+ radial (L) Gastrointestinal: normal bowel sounds, soft, non-tender, no organomegaly Back: normal inspection, normal range of motion, no vertebral tenderness Extremities: THERE IS TENDER TO PALPATION AND SWELLING THE LATERAL ASPECT OF THE ANKLE TO THE LATERAL MALLEOLUS. rANGE OF MOTION OF THE ANKLE IS REDUCED DUE TO PAIN. fULL RANGE OF MOTION OF THE LEFT FOOT. tENDERNESS TO PALPATION IN THE LEFT KNEE AND LEFT HIP. nO BRUISING SWELLING OR ABRASIONS IN THESE AREAS. nEUROVASCULAR SUPPLY IS INTACT TO THE LEFT LOWER EXTREMITY. nO OTHER JOINT SWELLING OR PAIN. Neurologic/Psych: no motor/sensory deficits, awake, alert, oriented x 3 Skin: intact, normal color, warm/dry Core Measures ACS in differential dx? No CVA/TIA Diagnosis No Sepsis Present: No Sepsis Focused Exam Completed? No (Aubrey Box) Progress Differential Diagnosis: FRACTURE, CONTUSION, STRAIN Plan of Care: Orders Procedure Date/time Status Heart Healthy Diet 06/01 B Active Patient Data 05/31 1836 Active ED Holding Orders 03/27 1747 Active Admit to inpatient 05/31 174 Active Vital Signs 05/31 1746 Active Code Status 05/31 1746 Active URINALYSIS 05/31 170 Complete TROPONIN LEVEL 05/31 1705 Complete COMPREHENSIVE METABOLIC PANEL 05/31 1705 Complete CBC WITHOUT DIFFERENTIAL 05/31 1705 Complete Intake & Output 05/31 1336 Active Laboratory Tests 05/31/17 1836: Urine Color YEL, Urine Clarity CLEAR, Urine pH 6.0, Ur Specific [place] 1.020, Urine Protein NEG, Urine Ketones NEG, Urine Nitrite NEG, Urine Bilirubin NEG, Urine Urobilinogen 0.2, Ur Leukocyte Esterase NEG, Ur Microscopic EXAM NOT REQUIRED, Urine Hemoglobin NEG, Urine Glucose NEG 05/31/17 1710: Anion Gap 10, Estimated GFR 54 L, BUN/Creatinine Ratio 22.0, Glucose 145 H, Calcium 9.3, Total Bilirubin 0.7, AST 14, ALT 22, Alkaline Phosphatase 87, Troponin I < 0.01, Total Protein 6.5, Albumin 3.6, Globulin 2.9, Albumin/ Globulin Ratio 1.2, CBC w Diff NO MAN DIFF REQ, RBC 4.18 L, MCV 87.4, MCH 27.9, MCHC 31.9 L, RDW 14.3, MPV 8.2, Gran % 72.9, Lymphocytes % 19.5 L, Monocytes % 5.8, Eosinophils % 1.5, Basophils % 0.3, Absolute Granulocytes 8.1 H, Absolute Lymphocytes 2.2, Absolute Monocytes 0.6, Absolute Eosinophils 0.2, Absolute Basophils 0 Patient seen and evaluated. She had a mechanical fall in the shower. There is no head strike it was witnessed by her granddaughter who caught her before she hit the floor. She inverted her left ankle. There is pain and swelling to left ankle. X-rays were obtained of the foot ankle knee and hip. There is a fracture of the distal fibula. Patient has difficulty walking at baseline and this is now Located by the fracture. She is unable to bear weight. She lives at home and her daughter's DO NOT FEEL THEY can take care of her. SHE IS NOT SAFE AT HOME. She'll require admission to the hospital for placement into rehabilitation. Basic blood work obtained patient was placed into a left posterior splint. She is medicated with Tylenol she is feeling better. She'll require case management, PT, OT, and pain control. Case discussed with DR SINGH HE AGREES. ORTHO NOTIFIED Diagnostic Imaging: Viewed by Me: Radiology Read. Discussed w/RAD: Radiology Read. Radiology Impression: PATIENT: PRETTY ROBERTS PRESENT AGE : 72 PATIENT ACCOUNT NO: [id number] : 44 LOCATION: [facility] ORDERING PHYSICIAN: Aubrey SIMPSON SERVICE DATE: 05/31/17 EXAM TYPE: RAD - XRY- ANKLE 3 OR MORE VIEWS L EXAMINATION: XR ANKLE, LEFT CLINICAL INFORMATION: Pain status-post fall. COMPARISON: None. TECHNIQUE: AP, lateral, and mortise views of the left ankle. FINDINGS: Bony alignment and mineralization are normal. The ankle mortise is intact. There is an oblique, nondisplaced fracture of the distal left fibula. Boehler's angle is normal. There are small posterior and moderate plantar calcaneal spurs. No left ankle joint effusion is seen. There is generalized soft tissue swelling. IMPRESSION: 1. An oblique, nondisplaced fracture this seen of the distal left fibula. 2. There are posterior and plantar calcaneal spurs. DICTATED BY: Dre Claire MD DATE/TIME DICTATED:05/31/171538 LINE LOCATOR:RAYSA DATE/TIME TRANSCRIBED:05/31/171538 CONFIDENTIAL, DO NOT COPY WITHOUT APPROPRIATE AUTHORIZATION. <Electronically signed in Other Vendor System> SIGNED BY: Dre Claire MD 05/31/17 1550, PATIENT: PRETTY ROBERTS PRESENT AGE: 72 PATIENT ACCOUNT NO: [id number] : 44 LOCATION: [facility] ORDERING PHYSICIAN: Aubrey SIMPSON SERVICE DATE: 05/31/17 EXAM TYPE: RAD - XRY-FOOT COMPLETE, LEFT; XRY-HIP 2- 3 VIEWS, LEFT; XRY-KNEE COMPLETE LEFT EXAMINATION: XR HIP, LEFT XR KNEE, LEFT XR FOOT, LEFT CLINICAL INFORMATION: Status post fall. Left foot and ankle pain. Left knee pain. Left hip pain. COMPARISON: None. TECHNIQUE: Left hip 2 views; AP and frog lateral. Left knee 4 views; AP, bilateral oblique and lateral. Left foot 3 views; AP, lateral and oblique. FINDINGS: LEFT HIP: The femoral head is well seated in the acetabulum. Hip joint space is preserved. No evidence of acute fracture or dislocation. Mild osseous demineralization. LEFT KNEE: No evidence of acute fracture or dislocation. Patellar enthesopathy spurs are noted. Mild narrowing of the lateral knee joint space. No evidence of subarticular sclerosis or cystic changes. No evidence of knee joint effusion. No soft tissue calcifications. LEFT FOOT: No evidence of acute fracture or dislocation. Mild degenerative changes are noted at the 1st MTP joint and multiple interphalangeal joints. There is mild diffuse osseous demineralization. Plantar and posterior calcaneal spurs are seen. No evidence of soft tissue air or radiopaque foreign body. Distal fibular fracture is better seen on the ankle radiographs. IMPRESSION: No evidence of acute fracture or dislocation in the left hip, left knee and left foot. DICTATED BY: Bon Carvalho MD DATE/TIME DICTATED:05/31/171545 LINE LOCATOR:RAYSA DATE/TIME TRANSCRIBED:1545 CONFIDENTIAL, DO NOT COPY WITHOUT APPROPRIATE AUTHORIZATION. (Aubrey Box) Departure Departure Disposition: STILL A PATIENT Condition: Stable Clinical Impression Primary Impression: Left fibular fracture Qualifiers: Encounter type: initial encounter Fibula location: distal Fracture type: closed Fracture morphology: unspecified fracture morphology Qualified Code : S82.832A - Other fracture of upper and lower end of left fibula, initial encounter for closed fracture Referrals: Dioni MARQUES,Sally Arias (PCP/Family) Departure Forms: Customer Survey General Discharge Information Admission Note Spoke With: Rangel Montejo MD Documentation of Exam: Documentation of any treatments & extenuating circumstances including Concerns Regarding Discharge (functional status, medication knowledge or non-compliance, living conditions, etc.) that warrant an admission rather than observation: [ ORTHO, PT, OT CASE MANAGEMENT, PAIN CONTROL ] (Aubrey Box) PA/DIRECTOR PEDIATRIC Co-Sign Statement Statement: ED Attending supervision documentation- [X] I saw and evaluated the patient. I have also reviewed all the pertinent lab results and diagnostic results. I agree with the findings and the plan of care as documented in the PA's/DIRECTOR PEDIATRIC's documentation. [] I have reviewed the ED Record and agree with the PA's/DIRECTOR PEDIATRIC's documentation. [] Additions or exceptions (if any) to the PAs/DIRECTOR PEDIATRIC's note and plan are summarized below: [] LEFT ANKLE SPRAIN. NO OTHER COMPLAINTS. X-ray shows fracture patient has gait instability. (Ajay Singh DO)
--- NOTE | 2017-05-31 15:50 | RADIOLOGY REPORT ---
EXAMINATION: XR ANKLE, LEFT CLINICAL INFORMATION: Pain status-post fall. COMPARISON: None. TECHNIQUE: AP, lateral, and mortise views of the left ankle. FINDINGS: Bony alignment and mineralization are normal. The ankle mortise is intact. There is an oblique, nondisplaced fracture of the distal left fibula. Boehler's angle is normal. There are small posterior and moderate plantar calcaneal spurs. No left ankle joint effusion is seen. There is generalized soft tissue swelling. IMPRESSION: 1. An oblique, nondisplaced fracture this seen of the distal left fibula. 2. There are posterior and plantar calcaneal spurs.
--- NOTE | 2017-05-31 16:19 | RADIOLOGY REPORT ---
EXAMINATION: XR HIP, LEFT XR KNEE, LEFT XR FOOT, LEFT CLINICAL INFORMATION: Status post fall. Left foot and ankle pain. Left knee pain. Left hip pain. COMPARISON: None. TECHNIQUE: Left hip 2 views; AP and frog lateral. Left knee 4 views; AP, bilateral oblique and lateral. Left foot 3 views; AP, lateral and oblique. FINDINGS: LEFT HIP: The femoral head is well seated in the acetabulum. Hip joint space is preserved. No evidence of acute fracture or dislocation. Mild osseous demineralization. LEFT KNEE: No evidence of acute fracture or dislocation. Patellar enthesopathy spurs are noted. Mild narrowing of the lateral knee joint space. No evidence of subarticular sclerosis or cystic changes. No evidence of knee joint effusion. No soft tissue calcifications. LEFT FOOT: No evidence of acute fracture or dislocation. Mild degenerative changes are noted at the 1st MTP joint and multiple interphalangeal joints. There is mild diffuse osseous demineralization. Plantar and posterior calcaneal spurs are seen. No evidence of soft tissue air or radiopaque foreign body. Distal fibular fracture is better seen on the ankle radiographs. IMPRESSION: No evidence of acute fracture or dislocation in the left hip, left knee and left foot.
[2017-05-31 17:50] LABS: ABSOLUTE BASOPHIL COUNT 0 /CUMM (0.0-0.2); ABSOLUTE EOSINOPHIL COUNT 0.2 /CUMM (0.0-0.7); ABSOLUTE GRANULOCYTE CT 8.1 /CUMM (1.4-6.5); ABSOLUTE LYMPH COUNT 2.2 /CUMM (1.2-3.4); ABSOLUTE MONOCYTE COUNT 0.6 /CUMM (0.10-0.60); BASOPHIL % 0.3 % (0.0-2.0); EOSINOPHIL % 1.5 % (0-5); GRANULOCYTE % 72.9 % (42.2-75.2); HEMATOCRIT 36.5 % (37-47); MEAN CORPUSCULAR HGB 27.9 PG (27.0-31.0); MEAN CORPUSCULAR HGB CONC 31.9 G/DL (33.0-37.0); MEAN CORPUSCULAR VOLUME 87.4 FL (81.0-99.0); MEAN PLATELET VOLUME 8.2 FL (7.4-10.4); PLATELET COUNT 274 /CUMM (130-400); RBC DISTRIBUTION WIDTH 14.3 % (11.5-14.5); RED BLOOD CELL CT 4.18 /CUMM (4.20-5.40); WHITE BLOOD CELL COUNT 11.1 /CUMM (4.8-10.8)
--- NOTE | 2017-05-31 19:46 | History & Physical ---
Hemant MARQUSE,Sukumar 05/31/171945: General Information and HPI MD Statement: I have seen and personally examined PRETTY ROBERTS and documented this H&P. The patient is a 72 year old F who presented with a patient stated chief complaint of [mechanical fall, L leg pain]. 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 She reports taking a shower with the help of her granddaughter when she lost her balance and fell hitting her left leg having severe pain as a result. She denies any associated lightheadedness, dizziness, chest pain, palpitations, shortness of breath, loss of consciousness, head strike. She uses a cane for ambulation at baseline. She denies any numbness or tingling of the left leg. Allergies/Medications Allergies: Coded Allergies: Penicillins (Intermediate, HIVES 05/19/17) Home Med list Albuterol Sulfate (Proair Hfa) 90 MCG HFA.AER.AD 2 PUF INH Q4-6 PRN PRN COUGH/ SOB Atenolol 25 MG TABLET 75 MG PO DAILY HTN (Reported) Atorvastatin Calcium (Lipitor) 40 MG TABLET 1 TAB PO DAILY CHOLESTEROL ( Reported) Budesonide/Formoterol Fumarate (Symbicort 160-4.5 Mcg Inhaler) 160 MCG-4.5 MCG/ ACTUATION HFA.AER.AD 2 PUF INH BID Dyspnea Clopidogrel Bisulfate (Plavix) 75 MG TABLET 1 TAB PO DAILY STROKE (Reported) Donepezil HCl (Aricept) 5 MG TABLET 1 TAB PO QPM DEMENTIA (Reported) Escitalopram Oxalate 10 MG TABLET 1 TAB PO DAILY DEPRESSION (Reported) Gabapentin (Neurontin) 300 MG CAPSULE 1 CAP PO QPM HEADACHE (Reported) Ipratropium [place] 21 MCG (0.03 %) SPRAY 1 SPRAY LESLI Q8 PRN Allergies ( Reported) Lacosamide (Vimpat) 100 MG TABLET 1 TAB PO BID SEIZURES (Reported) Lamotrigine 25 MG TABLET 3 TAB PO BID seizure (Reported) Lidocaine 5 % ADH..PATCH 1 PAT TOP PRN PAIN (Reported) Linagliptin (Tradjenta) 5 MG TABLET 0.5 TAB PO DAILY DIABETES (Reported) Pantoprazole Sodium 40 MG TABLET.DR 1 TAB PO DAILY ACID REFLUX (Reported) Prochlorperazine Maleate 5 MG TABLET 1 TAB PO PRN N/V (Reported) Past History Travel History Traveled to [place] past 21 day No Medical History Neurological: CVA, seizure, headaches Cardiovascular: hypertension, hyperlipidemia Respiratory: NONE Gastrointestinal: H/O CDIFF 03/2015 Hepatic: NONE Renal: CKD Musculoskeletal: NONE Psychiatric: depression Endocrine: diabetes Blood Disorders: NONE Cancer(s): NONE MILL STENCILER/Reproductive: NONE Other Medical Hx: family history: negative for renal diseaes History of MRSA: No History of VRE: No History of CDIFF: No Surgical History Surgical History: non-contributory Past Family/Social History Family History Relations & Conditions if any Relation not specified for: FH: diabetes mellitus FHx: hypertension Psychosocial History Who Do You Live With? self Services at Home: None Primary Language: Marshallese Smoking Status: Never Smoked ETOH Use: denies use Illicit Drug Use: denies illicit drug use Functional Ability ADLs Independent: dressing, eating, toileting, bathing. Ambulation: cane IADLs Needs Assist: finances, food prep, transportation, medication admin. Review of Systems Review of Systems Constitutional: Denies: chills, fever, weakness. EENTM: Denies: blurred vision, double vision. Cardiovascular: Denies: chest pain, palpitations, syncope. Respiratory: Denies: cough, short of breath. GI: Denies: diarrhea, nausea, vomiting. Genitourinary: Reports: no symptoms. Musculoskeletal: Reports: see HPI. Skin: Reports: no symptoms. Neurological/Psychological: Denies: numbness, tonic-clonic seizures. Exam & Diagnostic Data Last 24 Hrs of Vital Signs/I&O Vital Signs Date Time Temp Pulse Resp B/P B/P Pulse O2 O2 Flow FiO2 Mean Ox Delivery Rate 05/31 2044 98.6 68 18 116/74 97 Room Air 05/31 1906 98.2 18 177/78 96 Room Air 05/31 1519 97.9 58 18 150/67 97 Room Air 05/31 1339 Room Air 05/31 1319 98.7 62 18 164/81 98 Room Air Intake & Output 05/31 1600 05/31 0800 05/31 0000 Intake Total 60 Output Total Balance 60 Intake, Oral 60 Patient 180 lb Weight Weight Reported by Patient Measurement Method Physical Exam General Appearance Alert, Oriented X3, Cooperative, Mild Distress Skin Temp/Moisture Exam: Warm/Dry Cardiovascular Regular Rate, Normal S1, Normal S2 Lungs Clear to Auscultation, Normal Air Movement Abdomen Normal Bowel Sounds, Soft, No Tenderness Neurological Normal Speech, Sensation Intact Extremities L leg wrapped in soft splint, normal distal pulses, distal L leg exquisitely tender to palpation Last 24 Hrs of Labs/Pancho: Laboratory Tests 05/31/17 1836: Urine Color YEL, Urine Clarity CLEAR, Urine pH 6.0, Ur Specific [place] 1.020, Urine Protein NEG, Urine Ketones NEG, Urine Nitrite NEG, Urine Bilirubin NEG, Urine Urobilinogen 0.2, Ur Leukocyte Esterase NEG, Ur Microscopic EXAM NOT REQUIRED, Urine Hemoglobin NEG, Urine Glucose NEG 05/31/17 1710: Anion Gap 10, Estimated GFR 54 L, BUN/Creatinine Ratio 22.0, Glucose 145 H, Calcium 9.3, Total Bilirubin 0.7, AST 14, ALT 22, Alkaline Phosphatase 87, Troponin I < 0.01, Total Protein 6.5, Albumin 3.6, Globulin 2.9, Albumin/ Globulin Ratio 1.2, CBC w Diff NO MAN DIFF REQ, RBC 4.18 L, MCV 87.4, MCH 27.9, MCHC 31.9 L, RDW 14.3, MPV 8.2, Gran % 72.9, Lymphocytes % 19.5 L, Monocytes % 5.8, Eosinophils % 1.5, Basophils % 0.3, Absolute Granulocytes 8.1 H, Absolute Lymphocytes 2.2, Absolute Monocytes 0.6, Absolute Eosinophils 0.2, Absolute Basophils 0 Diagnostic Data Other Results XR ANKLE, LEFT Bony alignment and mineralization are normal. The ankle mortise is intact. There is an oblique, nondisplaced fracture of the distal left fibula. Boehler's angle is normal. There are small posterior and moderate plantar calcaneal spurs. No left ankle joint effusion is seen. There is generalized soft tissue swelling. IMPRESSION: 1. An oblique, nondisplaced fracture this seen of the distal left fibula. 2. There are posterior and plantar calcaneal spurs. XR HIP, LEFT XR KNEE, LEFT XR FOOT, LEFT LEFT HIP: The femoral head is well seated in the acetabulum. Hip joint space is preserved. No evidence of acute fracture or dislocation. Mild osseous demineralization. LEFT KNEE: No evidence of acute fracture or dislocation. Patellar enthesopathy spurs are noted. Mild narrowing of the lateral knee joint space. No evidence of subarticular sclerosis or cystic changes. No evidence of knee joint effusion. No soft tissue calcifications. LEFT FOOT: No evidence of acute fracture or dislocation. Mild degenerative changes are noted at the 1st MTP joint and multiple interphalangeal joints. There is mild diffuse osseous demineralization. Plantar and posterior calcaneal spurs are seen. No evidence of soft tissue air or radiopaque foreign body. Distal fibular fracture is better seen on the ankle radiographs. IMPRESSION: No evidence of acute fracture or dislocation in the left hip, left knee and left foot. 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 She has severe pain of the distal left leg, x-ray showing a nondisplaced oblique fracture of the distal left fibula. She uses a cane to ambulate at baseline. Labs on admission significant for mild leukocytosis (likely reactive), mild normocytic anemia(at baseline based review of previous records) On presentation patient was afebrile, pulse 62, RR 18, BP 164/81, pulse ox 98% on room air Problem list #Nondisplaced fracture of the distal left fibula #Chronic medical problems -Admit to general medicine -Per ED, this case was discussed with Dr. Castro who recommended outpatient follow-up, formal orthopedic consult should be placed in a.m. -Adequate pain control -PT/OT consult in a.m. -Patient does not have a medication list and is not familiar with her medications, although recently discharged should confirm medication list with her pharmacy in AM -NovoLog sliding scale with Accu-Cheks TIDAC/HS Diet: Diabetic diet DVT prophylaxis: Subcutaneous heparin, ALPS on R leg CODE STATUS: Full code As Ranked By This Provider Problem List: 1. Left fibular fracture Qualifiers Encounter type: initial encounter Fibula location: distal Fracture type: closed Fracture morphology: unspecified fracture morphology Qualified Code: S82.832A - Other fracture of upper and lower end of left fibula, initial encounter for closed fracture Core Measures/Misc (11/21) Acute Coronary Syndrome ACS Diagnosis: No Congestive Heart Failure Congestive Heart Failure Diagnosis No Cerebrovascular Accident CVA/TIA Diagnosis: No VTE (View Protocol) VTE Risk Factors Age>40 No Mechanical VTE Prophylaxis d/t N/A MechProphylax Ordered No VTE Pharm Prophylaxis d/t NA PharmProphylax ordered Sepsis (View protocol) Sepsis Present: No Aracelis Villegas 05/31/17 2101: Resident Review Statement Resident Statement: examined this patient, discussed with pharmacy graduate intern, agreed with pharmacy graduate intern Other Findings: Patient is 72-year-old Marshallese-speaking female with past medical history significant for hypertension, dyslipidemia, CVA with slight left-sided deficit, seizure, diabetes and depression came to ER after a mechanical fall while taking shower resulted in a nondisplaced fibular fracture. According to her she was taking shower and at the end with help of her granddaughter she was about to get out of shower and slipped but was caught up by her granddaughter and did not felt and hit the floor. She denied any head strike, loss of consciousness, chest pain, palpitations, blurring of vision, seizure-like activity before or after the incident. She denied any fever, chills, shortness of breath, cough, abdominal pain, nausea, vomiting, any diarrhea or constipation. She is experiencing 8 out of 10 pain but denied any numbness or tingling in the extremities. Vital signs on admission were temperature 98.7, pulse 62, respiratory rate 18, blood pressure 164/81 and she is saturating 98% on room air. Labs shows WBC count 11.1, hemoglobin 11.6, hematocrit 36.5, platelet count 274, sodium 142, potassium 4.5, BUN 22, creatinine 1.0, negative troponins and negative urinalysis. Imaging studies showed an oblique, nondisplaced fracture of the distal left fibula. On examination Patient is alert and oriented 3 Head atraumatic Neck supple no JVD Chest clear to auscultate Heart S1, S2 normal no added sound Abdomen soft no organomegaly Extremities showed left lower extremity wrapped in soft splint with normal pulses No neurological deficit noted on right lower extremity Assessment and plan 72-year-old female with past medical history significant for hypertension, dyslipidemia, CVA with left-sided residual deficit, history of seizures, depression and diabetes came after a mechanical near fall resulted in left nondisplaced oblique fibular fracture. We will admit patient on general medical floor and will address following problems Problem list 1. Left nondisplaced fibular fracture 2. History of diabetes 3. History of hypertension dyslipidemia 4. History of seizure 5. History of CVA Plan 1. We will admit her on general medical floor and we will request orthopedic evaluation in a.m. 2. She has mild leukocytosis most likely reactive but we will trend WBC and basic electrolyte panel 3. PT and OT evaluatioN and most likely patient should be off load and might need to go to [facility] eventually 4. Accu-Cheks with NovoLog coverage according to sliding scale 5. We will continue her home medications. 6. We will continue her Plavix as she is taking it on daily basis for more than a year but patient might need to follow up with neurologist as outpatient for further instructions. Patient is full code Pharmacological DVT prophylaxis Heart healthy diet Rangel Montejo 06/01/17 0338: Attending MD Review Statement Attending Statement Attending MD Statement: examined this patient, discuss w/resident/PA/PARAFFIN PLANT OPERATOR, agreed w/resident/PA/PARAFFIN PLANT OPERATOR, reviewed EMR data (avail), reviewed images, amended to note Attending Assessment/Plan: CC: Almost Fall PMH: HTN, HLD, CVA with residual left-sided weakness, seizure disorder, headache , DM, urinary incontinence Patient was brought in ER through EMS after almost fall. Patient needs assistance in taking shower and was accompanied by her granddaughter when she lost her balance and was almost falling down when her granddaughter supported her. In this event she hurt her left ankle and started to notice severe pain in her left ankle with mild swelling. Immediately EMS was called and patient was brought in ER. Other than the pain and the swelling no other complaints. Patient felt a little off balance when she fell down but no dizziness, palpitation, chest pain, syncope or presyncope, head strike or loss of consciousness. Vitals: Afebrile, pulse in 60s, RR 18, blood pressure 164/81, saturating well on room air. On exam: A O 3, cooperative, no acute distress, neck supple, JVD normal, no lymphadenopathy, mucosa moist, residual left sided weakness with decreased strength, contractures, no dependent edema, no obvious skin rashes or inflammation CVS: S1-S2, RRR. RS: Clear to auscultate bilaterally. Abdomen: Soft , NT, ND, bowel sounds present. Left lower extremity in splint. Perfusion normal but dorsalis pedis could not be palpated because of splint. Left foot, left knee, hip, left ankle x-ray: 1. No evidence of acute fracture or dislocation in the left hip, left knee and left foot. 2. An oblique, nondisplaced fracture this seen of the distal left fibula. 3. There are posterior and plantar calcaneal spurs. Assessment and plan 71-year-old female with multiple comorbidities and a residual left-sided weakness secondary to CVA, ambulating with cane presented in ER for accidental fall. She was taking shower, felt off balance slept and almost fell down but her granddaughter was helping her and her shower so she couldn't catch her to prevent the fall. No loss of consciousness, presyncope or syncope or head strike. Patient is found to have oblique non-displaced fracture on the left fibula. Splint was applied in ER. Given that she has residue left-sided weakness , requiring assistance at baseline ambulation, it's difficult to ambulate for her in this current condition. She would require PT evaluation and probable rehabilitation placement. + Accidental fall + Left nondisplaced distal fibula fracture + History of HTN, HLD, CVA with residual left-sided weakness, seizure disorder, headache, DM, urinary incontinence - Admit to general medicine - Adequate pain control - OT PT evaluation - Orthopedic consult - Evaluate for rehabilitation placement - Continue all her home medications - Patient could not confirm med reconciliation, need to reconcile in a.m. - DVT prophylaxis
[2017-05-31 20:45] VITALS: BP 116/74
--- NOTE | 2017-06-01 03:40 | Admission Certification ---
Admission Certification Certification Statement - As attending physician, I certify that at the time of - admission, based on clinical presentation, severity of - symptoms, need for further diagnostic testing and - therapeutic interventions, and risk of adverse outcomes - without in-hospital treatment, in my clinical assessment, - this patient requires an acute hospital stay for a minimum - of two nights or longer. I have also considered psychsocial - factors such as support system, advanced age, financial - issues, cognitive issues, and failed out-patient treatments, - past re-admission history, safety of patient, and lack of - compliance as applicable. Specific rationale supporting this admission is: accidental fall, left fibula fracture, inability to ambulate
[2017-06-01 06:36] VITALS: BP 120/66
--- NOTE | 2017-06-01 07:31 | PN- Housestaff ---
Melinda MARQUES,Aubrey 06/01/17 0730: Subjective Follow-up For: Left fibula fracture Subjective: Admitted last night s/p mechanical fall. She complains of 9/10 pain in her left leg. No CP, SOB, abd pain, or other issues. Review of Systems Constitutional: Reports: no symptoms. EENTM: Reports: no symptoms. Cardiovascular: Reports: no symptoms. Respiratory: Reports: no symptoms. Gastrointestinal: Reports: no symptoms. Genitourinary: Reports: no symptoms. Musculoskeletal: Reports: see HPI. Skin: Reports: no symptoms. Neurological/Psychological: Reports: no symptoms. Hematologic/Endocrine: Reports: no symptoms. Immunologic/Allergic: Reports: no symptoms. Objective Last 24 Hrs of Vital Signs/I&O Vital Signs Date Time Temp Pulse Resp B/P B/P Pulse O2 O2 Flow FiO2 Mean Ox Delivery Rate 06/01 0636 98.0 64 18 120/66 93 Room Air 05/31 2045 98.6 68 18 116/74 97 Room Air 05/31 1906 98.2 18 177/78 96 Room Air 05/31 1519 97.9 58 18 150/67 97 Room Air 05/31 1339 Room Air 05/31 1319 98.7 62 18 164/81 98 Room Air Intake & Output 06/01 0800 06/01 0000 05/31 1600 Intake Total 600 60 Output Total 351 Balance 249 60 Intake, Oral 600 60 Output, Stool 1 Output, Urine 350 Patient 79.01 kg 82.611 kg 81.647 kg Weight Weight Bed scale Reported by Patient Measurement Method Physical Exam General Appearance: Alert, Oriented X3, Cooperative, No Acute Distress Cardiovascular: Regular Rate Lungs: Clear to Auscultation Extremities: LEft leg wrapped. RLE without tenderness/swelling Current Medications: Current Medications Sig/Zach Start time Last Medication Dose Route Stop Time Status Admin Acetaminophen 650 MG Q6P PRN 05/31 2100 DC PO Acetaminophen 0 .STK-MED ONE 05/31 1338 DC PO Acetaminophen 975 MG ONCE ONE 05/31 1330 DC 05/31 PO 05/31 1331 1335 Albuterol Sulfate 2 PUF Q4-6 PRN PRN 05/31 2100 AC INH Atenolol 75 MG DAILY 06/01 1000 AC PO Atorvastatin Calcium 40 MG DAILY 06/01 1000 AC PO Budesonide/ 2 PUF BID 03/27 2200 AC 06/01 Formoterol Fumarate INH 0048 Clopidogrel Bisulfate 75 MG DAILY 06/01 1000 AC PO Donepezil HCl 5 MG QPM 05/31 2199 AC 06/01 PO 0047 Enoxaparin Sodium 40 MG DAILY 05/31 205 AC 06/01 SC 0046 Escitalopram Oxalate 10 MG DAILY 06/01 1000 AC PO Gabapentin 300 MG QPM 05/31 2199 AC 06/01 PO 0048 Ibuprofen 600 MG Q6P PRN 05/31 2100 r PO Insulin Aspart 0 TIDAC 06/01 0800 AC SC Lacosamide 100 MG BID 05/31 2199 AC 06/01 PO 0052 Lamotrigine 50 MG DAILY 06/01 1000 AC PO Lidocaine 1 PAT DAILY 06/01 1000 AC EXT Omeprazole 40 MG DAILY AC 06/01 0700 AC 06/01 PO 0554 Oxycodone/ 2 TAB Q6P PRN 05/31 2100 AC 06/01 Acetaminophen PO 0615 Tramadol HCl 0 .STK-MED ONE 05/31 1901 DC PO Tramadol HCl 50 MG ONCE ONE 05/31 1845 DC 05/31 PO 05/31 1846 1911 Last 24 Hrs of Lab/Pancho Results Last 24 Hrs of Labs/Mics: Laboratory Tests 06/01/17 0646: ESR Westergren Cancelled 05/31/17 1836: Urine Color YEL, Urine Clarity CLEAR, Urine pH 6.0, Ur Specific [place] 1.020, Urine Protein NEG, Urine Ketones NEG, Urine Nitrite NEG, Urine Bilirubin NEG, Urine Urobilinogen 0.2, Ur Leukocyte Esterase NEG, Ur Microscopic EXAM NOT REQUIRED, Urine Hemoglobin NEG, Urine Glucose NEG 05/31/17 1710: Anion Gap 10, Estimated GFR 54 L, BUN/Creatinine Ratio 22.0, Glucose 145 H, Calcium 9.3, Total Bilirubin 0.7, AST 14, ALT 22, Alkaline Phosphatase 87, Troponin I < 0.01, Total Protein 6.5, Albumin 3.6, Globulin 2.9, Albumin/ Globulin Ratio 1.2, CBC w Diff NO MAN DIFF REQ, RBC 4.18 L, MCV 87.4, MCH 27.9, MCHC 31.9 L, RDW 14.3, MPV 8.2, Gran % 72.9, Lymphocytes % 19.5 L, Monocytes % 5.8, Eosinophils % 1.5, Basophils % 0.3, Absolute Granulocytes 8.1 H, Absolute Lymphocytes 2.2, Absolute Monocytes 0.6, Absolute Eosinophils 0.2, Absolute Basophils 0 Assessment/Plan Assessment: Patient is a 72-year-old female with a PMH significant for 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 Problem list 1. Nondisplaced fracture of the distal left fibula 2. KRISTIN #Nondisplaced fracture of the distal left fibula: Patient presents after mechanical fall with fracture. Dr. Castro wrap the leg last night and said that she can walk with air boot or cast. -Appreciate orthopedic surgery recommendations -Aircast -Pain control -PT consults -Bowel reigmen #KRISTIN: Patient presented with normal creatinine but this morning creatinine is 1.7. Likely prerenal azotemia. -IV fluid hydration -Consider ultrasound if persistent #Chronic medical problems: -Continue home medications -NovoLog sliding scale with Accu-Cheks TIDAC/HS DVT prophylaxis with heparin Consistent carbohydrate 2 diet Full code Problem List: 1. Left fibular fracture Pain Ratin Pain Location: leg Pain Goal: Remain pain free Pain Plan: see a/p Tomorrow's Labs & Rationales: Tristin Villarreal 06/01/17 1103: Attending MD Review Statement Attending Statement Attending MD Statement: examined this patient, discuss w/resident/PA/TIME STUDY TECHNOLOGIST, agreed w/resident/PA/TIME STUDY TECHNOLOGIST, discussed with family, reviewed EMR data (avail), discussed with nursing, discussed with case mgmt, reviewed images, amended to note Attending Assessment/Plan: Assessment and plan 71-year-old female with multiple comorbidities and a residual left-sided weakness secondary to CVA, ambulating with cane presented in ER for accidental fall s/p fracture of distal fibula. No new complaints. She c/o pain in leg. 1 Accidental fall 2 Left nondisplaced distal fibula fracture 3 History of HTN, HLD, CVA with residual left-sided weakness, seizure disorder, headache, DM, urinary incontinence 4. Constipation - Admit to general medicine - Adequate pain control, add bowel regimen. - OT PT evaluation - Orthopedic pending - Evaluate for rehabilitation placement - Continue all her home medications - Confirm home meds. - DVT prophylaxis
[2017-06-01 08:43] LABS: ABSOLUTE BASOPHIL COUNT 0.1 /CUMM (0.0-0.2); ABSOLUTE EOSINOPHIL COUNT 0.2 /CUMM (0.0-0.7); ABSOLUTE GRANULOCYTE CT 6.5 /CUMM (1.4-6.5); ABSOLUTE MONOCYTE COUNT 0.9 /CUMM (0.10-0.60); BASOPHIL % 0.5 % (0.0-2.0); EOSINOPHIL % 2.2 % (0-5); GRANULOCYTE % 61.1 % (42.2-75.2); HEMATOCRIT 34.1 % (37-47); MEAN CORPUSCULAR HGB 28.6 PG (27.0-31.0); MEAN CORPUSCULAR HGB CONC 32.4 G/DL (33.0-37.0); MEAN CORPUSCULAR VOLUME 88.2 FL (81.0-99.0); MEAN PLATELET VOLUME 8.4 FL (7.4-10.4); PLATELET COUNT 254 /CUMM (130-400); RBC DISTRIBUTION WIDTH 14.4 % (11.5-14.5); RED BLOOD CELL CT 3.86 /CUMM (4.20-5.40); WHITE BLOOD CELL COUNT 10.6 /CUMM (4.8-10.8)
[2017-06-01] MEDS ORDERED: IPRATROPIUM BRO30 M2 NAS (12:01)
[2017-06-01 14:21] VITALS: BP 128/70
[2017-06-01 22:45] VITALS: BP 120/60
[2017-06-02 06:20] VITALS: BP 132/76
--- NOTE | 2017-06-02 07:29 | PN- Housestaff ---
See Addendum Subjective Follow-up For: Left fibula fracture Subjective: No overnight events. She has significant pain this morning. However, she also became confused with oxycodone yesterday. No CP, SOB, abd pain, or other issues. Review of Systems Constitutional: Reports: no symptoms. EENTM: Reports: no symptoms. Cardiovascular: Reports: no symptoms. Respiratory: Reports: no symptoms. Gastrointestinal: Reports: no symptoms. Genitourinary: Reports: no symptoms. Musculoskeletal: Reports: see HPI. Skin: Reports: no symptoms. Neurological/Psychological: Reports: no symptoms. Hematologic/Endocrine: Reports: no symptoms. Immunologic/Allergic: Reports: no symptoms. Objective Last 24 Hrs of Vital Signs/I&O Vital Signs Date Time Temp Pulse Resp B/P B/P Pulse O2 O2 Flow FiO2 Mean Ox Delivery Rate 06/02 0943 Room Air 06/02 0932 144/90 06/02 0620 98.5 90 18 132/76 93 Room Air 06/01 2245 97.8 82 18 120/60 92 Room Air 06/01 1421 98.6 78 20 128/70 91 Room Air 06/01 1059 56 110/62 Intake & Output 06/02 1600 06/02 0800 06/02 0000 Intake Total 700 400 Output Total Balance 700 400 Intake, IV 600 300 Intake, Oral 100 100 Number 0 Bowel Movements Patient 79.917 kg Weight Weight Bed scale Measurement Method Physical Exam General Appearance: Alert, Oriented X3, Cooperative, No Acute Distress Cardiovascular: Regular Rate, Normal S1, Normal S2 Lungs: Clear to Auscultation Abdomen: Normal Bowel Sounds, Soft, No Tenderness Extremities: Pulses present, left leg in cast. Current Medications: Current Medications Sig/Zach Start time Last Medication Dose Route Stop Time Status Admin Acetaminophen 1,000 MG Q8 06/01 1400 AC 06/02 PO 0616 Albuterol Sulfate 2 PUF Q4-6 PRN PRN 05/31 2100 AC INH Atenolol 75 MG DAILY 06/01 1000 AC 06/02 PO 0932 Atorvastatin Calcium 40 MG DAILY 06/01 1000 AC 06/02 PO 0933 Budesonide/ 2 PUF BID 05/31 2200 AC 06/01 Formoterol Fumarate INH 2123 Calcium Carbonate 1,250 MG DAILY 06/02 1016 UNVr PO Cholecalciferol 2,000 IU DAILY 06/02 1016 UNVr PO Clopidogrel Bisulfate 75 MG DAILY 06/01 1000 AC 06/02 PO 0933 Codeine 15 MG Q6P PRN 06/02 0730 DC PO Donepezil HCl 5 MG QPM 05/31 2200 AC 06/01 PO 2123 Escitalopram Oxalate 10 MG DAILY 06/01 1000 AC 06/02 PO 0933 Gabapentin 300 MG QPM 05/31 2200 AC 06/01 PO 2123 Heparin Sodium 5,000 UNIT Q8 06/01 0937 AC 06/02 (Porcine) SC 0616 Insulin Aspart 0 TIDAC 06/01 0800 AC 06/01 SC 1256 Lacosamide 100 MG BID 05/31 2200 AC 06/02 PO 0933 Lactated Ringer's 1,000 ML Q13H 06/01 1045 AC 06/02 IV 0000 Lactated Ringer's 75 ML CONTINOUS INFUSION 06/01 1030 CAN IV Lamotrigine 75 MG BID 06/01 2200 AC 06/01 PO 2123 Lamotrigine 50 MG DAILY 06/01 1000 DC 06/01 PO 1058 Lidocaine 1 PAT DAILY 06/01 1000 AC 06/01 EXT 1107 Omeprazole 40 MG DAILY AC 06/01 0700 AC 06/02 PO 0616 Oxycodone HCl 10 MG Q6P PRN 06/01 1115 DC PO Oxycodone/ 2 TAB Q6P PRN 05/31 2100 DC 06/01 Acetaminophen PO 0615 Patient Medication 1 ED ONE ONE 06/01 1100 DC 06/01 Teaching ED 06/01 1101 1109 Polyethylene Glycol 17 GM DAILY 06/01 1030 AC 06/01 PO 1821 Senna/Docusate Sodium 1 TAB BID 06/01 1030 AC 06/01 PO 2123 Tramadol HCl 50 MG Q6P PRN 06/02 1015 AC PO Assessment/Plan Assessment: Patient is a 72-year-old female with a PMH significant for 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 Problem list 1. Nondisplaced fracture of the distal left fibula 2. KRISTIN #Nondisplaced fracture of the distal left fibula: Patient presents after mechanical fall with fracture. The leg is now in an Aircast boot but she is still having significant pain. Orthopedic apparently evaluated patient and recommended full weight bearing with cast but they have not left a note. -Appreciate orthopedic surgery recommendations -Aircast -Pain control -PT consult -Bowel reigmen #KRISTIN: Patient presented with normal creatinine but this morning creatinine is 1.7. Likely prerenal azotemia. Creatinine improving. -IV fluid hydration -Consider ultrasound if persistent #Chronic medical problems: -Continue home medications -NovoLog sliding scale with Accu-Cheks TIDAC/HS DVT prophylaxis with heparin Consistent carbohydrate 2 diet Full code Problem List: 1. Left fibular fracture Pain Ratin Pain Location: left leg Pain Goal: Remain pain free Pain Plan: see a/p Tomorrow's Labs & Rationales: bep
--- NOTE | 2017-06-02 14:04 | Discharge Summary ---
Visit Information Visit Dates Admission Date: 05/31/17 Discharge Date: 06/03/17 Hospital Course Course Attending Physician: Tico Mcguire Primary Care Physician: Dioni MARQUES,Sally Arias [facility] Course: Patient is a 72-year-old French-speaking woman with past medical history significant for hypertension, dyslipidemia, CVA with slight left-sided deficit, seizure, diabetes and depression. She came to the ER after a mechanical fall while she was taking a shower. She was taking a shower and at the end with help of her granddaughter she was about to get out of the shower and slipped and fell hitting her left leg on the floor. She denied any head strike, loss of consciousness, chest pain, palpitations, blurring of vision, seizure-like activity before or after the incident. She denied any fever, chills, shortness of breath, cough, abdominal pain, nausea, vomiting, any diarrhea or constipation. She is experiencing 8 out of 10 pain but denied any numbness or tingling in the extremities. Vital signs on admission were temperature 98.7, pulse 62, respiratory rate 18, blood pressure 164/81 and she is saturating 98% on room air. Physical examination on presentation: Patient is alert and oriented 3 Head atraumatic Neck supple no JVD Chest clear to auscultate Heart S1, S2 normal no added sound Abdomen soft no organomegaly Extremities showed left lower extremity wrapped in soft splint with normal pulses No neurological deficit noted on right lower extremity Labs shows WBC count 11.1, hemoglobin 11.6, hematocrit 36.5, platelet count 274, sodium 142, potassium 4.5, BUN 22, creatinine 1.0, negative troponins and negative urinalysis. Imaging studies showed an oblique, nondisplaced fracture of the distal left fibula. Hip and bilateral knee x-rays revealed no fracture. She was admitted for gait instability and left nondisplaced distal fibula fracture. She was managed conservatively as recommended by orthopedic surgery with splinting of her left leg and a left Aircast boot. Her pain was controlled with tramadol and Tylenol. Her other home medications were continued. She had elevated creatinine shortly after admission and she was rehydrated with IV fluids. Her creatinine improved. Physical therapy review the patient and recommended she have short-term rehabilitation [facility]. She was recommended by orthopedic surgery for partial weight bearing with walker and Aircast boot. Please avoid percocet or morphine and use tramadol for severe pain as needed. Patient should have bone density testing with DEXA scan as outpatient. Allergies: Coded Allergies: Penicillins (Intermediate, HIVES 05/19/17) Disposition Summary Disposition Principal Diagnosis: 1. Left nondisplaced distal fibula fracture 2. Multifactorial gait instability 3. Acute kidney injury Additional Diagnosis: 4. History of HTN 5. History of CVA with residual left-sided weakness, 6. Seizure disorder 7. Diabetes mellitus 8. Constipation 9. Urinary incontinence Discharge Disposition: SNF Discharge Instructions General Discharge Information Code Status: Full Code Patient's Diet: Diabetic diet/consistent carbohydrate diet Patient's Activity: Self-limited activity/Partial weight bearing with walker and Aircast boot Follow-Up Instructions/Appts: 1. Follow-up with her primary care provider within one week of discharge 2. Follow-up with your orthopedic surgeon Dr. Castro within 1 week of discharge 3. Please avoid percocet or morphine and use tramadol for severe pain as needd 4. Patient should have bone density testing with DEXA scan as outpatient Medications at Discharge Discharge Medications: Continue taking these medications: Clopidogrel Bisulfate (Plavix) 75 MG TABLET 1 Tablet ORAL DAILY Comments: Last Taken:06/03/17 Time: 9 A.M Atorvastatin Calcium (Lipitor) 40 MG TABLET 1 Tablet ORAL DAILY Comments: LAST TAKEN: 06/03/17 @ 9 AM Linagliptin (Tradjenta) 5 MG TABLET 0.5 Tablet ORAL DAILY Qty = 30 Comments: NOT GIVEN IN HOSPITAL Atenolol (Atenolol) 25 MG TABLET 75 Milligram ORAL DAILY Qty = 90 Comments: LAST TAKEN: 06/03/17 @ 9 AM Donepezil HCl (Aricept) 5 MG TABLET 1 Tablet ORAL Every night Comments: Last Taken: 06/02/17 Time: 10PM Gabapentin (Neurontin) 300 MG CAPSULE 1 Capsule ORAL Every night Comments: Last Taken: 06/02/17 Time: 9 AM Lacosamide (Vimpat) 100 MG TABLET 1 Tablet ORAL TWICE DAILY Qty = 60 Comments: Last Taken: 06/03/17 Time: 9 AM Escitalopram Oxalate (Escitalopram Oxalate) 10 MG TABLET 1 Tablet ORAL DAILY Qty = 90 Comments: Last Taken: 06/03/17 Time: 9 A.M Pantoprazole Sodium (Pantoprazole Sodium) 40 MG TABLET.DR 1 Tablet ORAL DAILY Qty = 30 Comments: NOT TAKEN IN HOSPITAL Lidocaine (Lidocaine) 5 % ADH..PATCH 1 Patch On the skin as needed for PAIN Qty = 30 Comments: LAST TAKEN: 06/02/17 @ 10 AM Prochlorperazine Maleate (Prochlorperazine Maleate) 5 MG TABLET 1 Tablet ORAL as needed for N/V Qty = 30 Comments: NOT GIVEN THIS ADMISSION Lamotrigine (Lamotrigine) 25 MG TABLET 3 Tablet ORAL TWICE DAILY Qty = 182 Comments: LAST TAKEN: 06/03/17 @ 9 AM Albuterol Sulfate (Proair Hfa) 90 MCG HFA.AER.AD 2 Puff Inhale through mouth EVERY 4-6 HOURS NEEDED as needed for COUGH/ SOB Qty = 1 Comments: NOT GIVEN DURING ADMISSION Budesonide/Formoterol Fumarate (Symbicort 160-4.5 Mcg Inhaler) 160 MCG-4.5 MCG/ ACTUATION HFA.AER.AD 2 Puff Inhale through mouth TWICE DAILY Qty = 1 Comments: NOT STARTED IN HOSPITAL Ipratropium [place] (Ipratropium [place]) 21 MCG (0.03 %) SPRAY 1 [place] In the nose EVERY 8 HOURS as needed for Allergies Qty = 1 Start taking the following new medications: Calcium Carbonate (Calcium Carbonate) 500 MG CALCIUM (1,250 MG) TABLET 1,250 Milligram ORAL DAILY Qty = 30 No Refills Cholecalciferol (Vitamin D3) 1,000 UNIT TABLET 2,000 International Unit ORAL DAILY Qty = 30 No Refills Tramadol HCl (Tramadol HCl) 50 MG TABLET 50 Milligram ORAL EVERY SIX HOURS NEEDED as needed for PAIN SCALE 7-10 ( SEVERE) Qty = 10 No Refills Comments: LAST TAKEN: 06/02/17 @ 11 AM Acetaminophen (Acetaminophen) 500 MG TABLET 1,000 Milligram ORAL EVERY 8 HOURS as needed for Pain Qty = 30 No Refills Copies To: Matthew MARQUES,Weston Wagner; Dioni MARQUES,Sally Arias Attending MD Review Statement Documenting Attending: Tico Melton MD Other Findings: The patient was seen on the day of discharge. OK to discharge to [facility]. Will need eventual osteoporosis evaluation and possible treatment with bisphosphonate (should have OP DEXA).
[2017-06-02 14:47] VITALS: BP 160/80
--- NOTE | 2017-06-02 15:31 | Cons- Orthopedic ---
General Information and HPI Consulting Request Date of Consult: 06/02/17 Requested By: Tristin Garner MD Reason for Consult: left fibula fracture. History of Present Illness: Patient has an unstable gait had a twisting injury to her left ankle and has a nondisplaced distal fibular fracture. No surgical intervention is necessary. Allergies/Medications Allergies: Coded Allergies: Penicillins (Intermediate, HIVES 05/19/17) Home Med List: Albuterol Sulfate (Proair Hfa) 90 MCG HFA.AER.AD 2 PUF INH Q4-6 PRN PRN COUGH/ SOB Atenolol 25 MG TABLET 75 MG PO DAILY HTN (Reported) Atorvastatin Calcium (Lipitor) 40 MG TABLET 1 TAB PO DAILY CHOLESTEROL ( Reported) Budesonide/Formoterol Fumarate (Symbicort 160-4.5 Mcg Inhaler) 160 MCG-4.5 MCG/ ACTUATION HFA.AER.AD 2 PUF INH BID Dyspnea Clopidogrel Bisulfate (Plavix) 75 MG TABLET 1 TAB PO DAILY STROKE (Reported) Donepezil HCl (Aricept) 5 MG TABLET 1 TAB PO QPM DEMENTIA (Reported) Escitalopram Oxalate 10 MG TABLET 1 TAB PO DAILY DEPRESSION (Reported) Gabapentin (Neurontin) 300 MG CAPSULE 1 CAP PO QPM HEADACHE (Reported) Ipratropium [place] 21 MCG (0.03 %) SPRAY 1 SPRAY LESLI Q8 PRN Allergies ( Reported) Lacosamide (Vimpat) 100 MG TABLET 1 TAB PO BID SEIZURES (Reported) Lamotrigine 25 MG TABLET 3 TAB PO BID seizure (Reported) Lidocaine 5 % ADH..PATCH 1 PAT TOP PRN PAIN (Reported) Linagliptin (Tradjenta) 5 MG TABLET 0.5 TAB PO DAILY DIABETES (Reported) Pantoprazole Sodium 40 MG TABLET.DR 1 TAB PO DAILY ACID REFLUX (Reported) Prochlorperazine Maleate 5 MG TABLET 1 TAB PO PRN N/V (Reported) Past History Medical History Neurological: CVA, seizure, headaches Cardiovascular: hypertension, hyperlipidemia Respiratory: NONE Gastrointestinal: H/O CDIFF 03/2015 Hepatic: NONE Renal: CKD Musculoskeletal: NONE Psychiatric: depression Endocrine: diabetes Blood Disorders: NONE Cancer(s): NONE WASHER CARCASS/Reproductive: NONE Other Medical Hx: family history: negative for renal diseaes Surgical History Pertinent Surgical History: non-contributory Family History Relations & Conditions If Any: Relation not specified for: FH: diabetes mellitus FHx: hypertension Psychosocial History Who Do You Live With? self Services at Home: None Primary Language: Ukrainian Smoking Status: Never Smoked ETOH Use: denies use Illicit Drug Use: denies illicit drug use Functional Ability ADLs Independent: dressing, eating, toileting, bathing. Ambulation: cane IADLs Needs Assist: finances, food prep, transportation, medication admin. Exam & Diagnostic Data Vital Signs and I&O Vital Signs Date Time Temp Pulse Resp B/P B/P Pulse O2 O2 Flow FiO2 Mean Ox Delivery Rate 06/02 1447 98.2 61 18 160/80 92 06/02 0943 Room Air 06/02 0932 144/90 06/02 0620 98.5 90 18 132/76 93 Room Air 06/01 2245 97.8 82 18 120/60 92 Room Air Intake & Output 06/02 1600 06/02 0800 06/02 0000 06/01 1600 06/01 0800 06/01 0000 Intake Total 1850 700 400 960 200 600 Output Total 351 Balance 1850 700 400 960 200 249 Intake, IV 450 600 300 600 0 Intake, Oral 1400 100 100 360 200 600 Number 0 0 0 Bowel Movements Output, Stool 1 Output, Urine 350 Patient 176 lb 176 lb 174 lb 182 lb Weight Weight Bed scale Bed scale Measurement Method Physical Exam: he has pain over the left distal fibula no major swelling no pain over the medial malleolus no pain at the proximal tib-fib area knee has a good range of motion. Neurologically she is intact. Assessment/Plan Assessment/Plan Nondisplaced left distal fibular fracture the patient has been placed in a walking boot she can apply some pressure with a walker at all times for the next 4-6 weeks. She should follow up in the office in 4-6 weeks for follow-up x- rays. Consult Acknowledgment - Thank you for your consult request. Attending MD Review Statement Attending Statement Attending MD Statement: examined this patient
[2017-06-02 22:27] VITALS: BP 124/60
[2017-06-03 06:20] VITALS: BP 118/64
--- NOTE | 2017-06-03 06:55 | Patient Discharge Instructions ---
Discharge Instructions General Discharge Information You were seen/treated for: Left nondisplaced fibula fracture, acute kidney injury Watch for these problems: Fever, chest pain, shortness of breath Special Instructions: Please take all medications as directed. Please follow-up with Dr. Castro, orthopedic surgery, in 4-6 weeks for x-rays. You are partial weight bearing on the left leg with aircast and walker. Diet Continue normal diet: Yes Activity Full Activity/No Limits: No Activity Self Limited: No Activity Limited to: Walking with Assistance (Use walker and aircast) Other activity limits: Partial weight bearing with walker and aircast. Acute Coronary Syndrome Inclusion Criteria At DC or during hospital stay patient has or had the following: ACS DIAGNOSIS No Discharge Core Measures Meds if any: Prescribed or Continued at Discharge Meds if any: NOT Prescribed or Continued at Discharge Congestive Heart Failure Inclusion Criteria At DC or during hospital stay patient has or had the following: CHF DIAGNOSIS No Discharge Core Measures Meds if any: Prescribed or Continued at Discharge Meds if any: NOT Prescribed or Continued at Discharge Cerebrovascular accident Inclusion Criteria At DC or during hospital stay patient has or had the following: CVA/TIA Diagnosis No Discharge Core Measures Meds if any: Prescribed or Continued at Discharge Meds if any: NOT Prescribed or Continued at Discharge Venous thromboembolism Inclusion Criteria VTE Diagnosis No VTE Type NONE VTE Confirmed by (Test) NONE Discharge Core Measures - Per Current guidelines, there needs to be overlap - treatment for the first 5 days of Warfarin therapy. - If discharged on Warfarin prior to 5 days of - overlap therapy, the patient will need to be - assessed for post discharge needs including - *Post discharge parental anticoagulation - *Warfarin and/or parental anticoagulation education - *Follow up date to check INR post discharge At least 5 days overlap therapy as Inpatient No Meds if any: Prescribed or Continued at Discharge Note: Overlap Therapy is Warfarin and Anticoagulant Meds if any: NOT Prescribed or Continued at Discharge
--- NOTE | 2017-06-03 07:03 | PN- Housestaff ---
See Addendum Subjective Follow-up For: Left fibular fracture Subjective: No overnight events. She has not had a BM. Still complaining of leg pain but she says it has improved. She is amenable to go to rehab today. No other complaints. Review of Systems Constitutional: Reports: no symptoms. EENTM: Reports: no symptoms. Cardiovascular: Reports: no symptoms. Respiratory: Reports: no symptoms. Gastrointestinal: Reports: see HPI. Genitourinary: Reports: no symptoms. Musculoskeletal: Reports: see HPI. Skin: Reports: no symptoms. Neurological/Psychological: Reports: no symptoms. Hematologic/Endocrine: Reports: no symptoms. Immunologic/Allergic: Reports: no symptoms. Objective Last 24 Hrs of Vital Signs/I&O Vital Signs Date Time Temp Pulse Resp B/P B/P Pulse O2 O2 Flow FiO2 Mean Ox Delivery Rate 06/03 0620 98.2 57 20 118/64 94 Room Air 06/02 2227 98.3 58 18 124/60 93 Room Air 06/02 1447 98.2 61 18 160/80 92 06/02 0943 Room Air 06/02 0932 144/90 Intake & Output 06/03 0800 06/03 0000 06/02 1600 Intake Total 952 484 2515 Output Total Balance 435 920 4014 Intake, IV 450 Intake, Oral 648 299 7064 Number 0 Bowel Movements Patient 81.221 kg 79.917 kg Weight Weight Bed scale Measurement Method Physical Exam General Appearance: Alert, Oriented X3, Cooperative, No Acute Distress Cardiovascular: Regular Rate Lungs: Clear to Auscultation Abdomen: Normal Bowel Sounds, Soft, No Tenderness Extremities: Left leg in cast, moves toes appropriately. Current Medications: Current Medications Sig/Zach Start time Last Medication Dose Route Stop Time Status Admin Acetaminophen 1,000 MG Q8 06/01 1400 AC 06/03 PO 0559 Albuterol Sulfate 2 PUF Q4-6 PRN PRN 05/31 2100 AC INH Atenolol 75 MG DAILY 06/01 1000 AC 06/02 PO 0932 Atorvastatin Calcium 40 MG DAILY 06/01 1000 AC 06/02 PO 0933 Bisacodyl 5 MG ONE ONE 06/03 0700 UNVr PO 06/03 0701 Budesonide/ 2 PUF BID 05/31 2200 AC 06/02 Formoterol Fumarate INH 2112 Calcium Carbonate 1,250 MG DAILY 06/02 1016 AC 06/02 PO 1148 Cholecalciferol 2,000 IU DAILY 06/02 1016 AC 06/02 PO 1148 Clopidogrel Bisulfate 75 MG DAILY 06/01 1000 AC 06/02 PO 0933 Codeine 15 MG Q6P PRN 06/02 0730 DC PO Donepezil HCl 5 MG QPM 05/31 2200 AC 06/02 PO 2112 Escitalopram Oxalate 10 MG DAILY 06/01 1000 AC 06/02 PO 0933 Gabapentin 300 MG QPM 05/31 2200 AC 06/02 PO 2112 Heparin Sodium 5,000 UNIT Q8 06/01 0937 AC 06/03 (Porcine) SC 0558 Insulin Aspart 0 TIDAC 06/01 0800 AC 06/02 SC 1654 Lacosamide 100 MG BID 05/31 2200 AC 06/02 PO 2113 Lactated Ringer's 1,000 ML Q13H 06/01 1045 DC 06/02 IV 1150 Lamotrigine 75 MG BID 06/01 2200 AC 06/02 PO 2112 Lidocaine 1 PAT DAILY 06/01 1000 AC 06/02 EXT 1107 Omeprazole 40 MG DAILY AC 06/01 0700 AC 06/03 PO 0559 Patient Medication 1 ED ONE ONE 06/02 1445 DC 06/02 Teaching ED 06/02 1446 1521 Polyethylene Glycol 17 GM DAILY 06/01 1030 AC 06/02 PO 1107 Senna/Docusate Sodium 1 TAB BID 06/01 1030 AC 06/02 PO 2112 Tramadol HCl 50 MG Q6P PRN 06/02 1015 AC 06/02 PO 1058 Last 24 Hrs of Lab/Pancho Results Last 24 Hrs of Labs/Mics: Laboratory Tests 06/02/17 0739: Anion Gap 9, Estimated GFR 44 L, BUN/Creatinine Ratio 20.8 Assessment/Plan Assessment: Patient is a 72-year-old female with a PMH significant for 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 status post mechanical fall. Problem list 1. Nondisplaced fracture of the distal left fibula 2. KRISTIN #Nondisplaced fracture of the distal left fibula: Patient presented after mechanical fall with fracture. The leg is now in an Aircast boot. Orthopedic is recommending weightbearing with the boot and walker. Her pain was previously poorly controlled but now with the tramadol is better controlled. She is amenable to going to rehabilitation today. -Appreciate orthopedic surgery recommendations. She will need follow-up with Dr. Castro in 4-6 weeks with repeat x-rays -Aircast -Pain control -PT consult -Bowel reigmen #KRISTIN: Patient presented with normal creatinine but creatinine lou[place] to 1.7. Likely prerenal azotemia. Creatinine improving now. -CTM #Chronic medical problems: -Continue home medications -NovoLog sliding scale with Accu-Cheks TIDAC/HS DVT prophylaxis with heparin Consistent carbohydrate 2 diet Full code Problem List: 1. Left fibular fracture Pain Ratin Pain Location: leg Pain Goal: Remain pain free Pain Plan: see a/p Tomorrow's Labs & Rationales: no
[2017-06-03] MEDS ORDERED: VITAMIN D31000 UNI2 PO (07:08)
[2017-06-03] MEDS ORDERED: CALCIUM CARBON500 M2 PO (07:08)
[2017-06-03] MEDS ORDERED: TRAMADOL HCL50 M1 PO (09:12)
[2017-06-03] MEDS ORDERED: ACETAMINOPHEN500 M4 PO (09:12)
[2017-06-03 14:06] VITALS: BP 118/64
== END 2017-06-03 14:25 | DRG 563 ==
LOC: ERH 13:18 → 2NA 17:47 → ERHI 17:47 → 2NA 17:47 → ENRESERV 19:01 → ENTRNSPT 20:01 → 2NA 20:11 → EDTRNSPTSTS 20:12 → 2NA 20:12 → EDTRNSPT 20:12 → CMPTRNSPT 20:28 → 2NA 06-01 08:04 → ENPENDDIS 06-03 10:00 → 2NA 06-03 14:25
PROVIDERS: Internal Medicine; Physician Assistant Medical
DX: S82.832A Other fracture of upper and lower end of left fibula, initial encounter for closed fracture (principal); N17.9 Acute kidney failure, unspecified; I69.354 Hemiplegia and hemiparesis following cerebral infarction affecting left non-dominant side; E11.22 Type 2 diabetes mellitus with diabetic chronic kidney disease; R26.9 Unspecified abnormalities of gait and mobility; W18.39XA Other fall on same level, initial encounter; Y93.E1 Activity, personal bathing and showering; Y92.002 Bathroom of unspecified non-institutional (private) residence as the place of occurrence of the external cause; I12.9 Hypertensive chronic kidney disease with stage 1 through stage 4 chronic kidney disease, or unspecified chronic kidney disease; N18.9 Chronic kidney disease, unspecified; G40.909 Epilepsy, unspecified, not intractable, without status epilepticus; Z88.0 Allergy status to penicillin; Z79.51 Long term (current) use of inhaled steroids; E78.5 Hyperlipidemia, unspecified; F32.9 Major depressive disorder, single episode, unspecified; K59.00 Constipation, unspecified
CPT/HCPCS: 2NASP; 36592; 73502-LT; 73562-LT; 73610-LT; 73630-LT; 81003; 82436; 97116-GO; 97161-GP; 97530-GO; J1644; J1650; J3490; J7120

== ENCOUNTER 2017-06-28 12:59 | Emergency (ER) | payer OTHER, MEDICARE ==
[~2017-06-28] VITALS: Ht 149.9 cm; Wt 80.7 kg
[~2017-06-28 12:59] MED LIST changes: +ACETAMINOPHEN500 M4 PO; +CALCIUM CARBON500 M2 PO; +LAMICTAL100 M2 PO; -LAMOTRIGINE25 M3 PO; +TRAMADOL HCL50 M1 PO
--- NOTE | 2017-06-28 13:40 | ED GENERAL ADULT ---
History of Present Illness General Chief Complaint: General Adult Stated Complaint: ELEVATED BP PER FAMILY Source: patient Exam Limitations: poor historian Vital Signs & Intake/Output Vital Signs & Intake/Output Vital Signs Date Time Temp Pulse Resp B/P B/P Pulse O2 O2 Flow FiO2 Mean Ox Delivery Rate 06/28 1517 97.7 74 20 155/79 95 Room Air 06/28 1445 97 Room Air 06/28 1312 96.8 76 20 132/66 96 Room Air Allergies Coded Allergies: Penicillins (Intermediate, HIVES 05/19/17) Reconcile Medications Acetaminophen 500 MG TABLET 1,000 MG PO Q8 PRN Pain Albuterol Sulfate (Proair Hfa) 90 MCG HFA.AER.AD 2 PUF INH Q4-6 PRN PRN COUGH/ SOB Atenolol 25 MG TABLET 75 MG PO DAILY HTN (Reported) Atorvastatin Calcium (Lipitor) 40 MG TABLET 1 TAB PO DAILY CHOLESTEROL ( Reported) Budesonide/Formoterol Fumarate (Symbicort 160-4.5 Mcg Inhaler) 160 MCG-4.5 MCG/ ACTUATION HFA.AER.AD 2 PUF INH BID Dyspnea Calcium Carbonate 500 MG CALCIUM (1,250 MG) TABLET 1,250 MG PO DAILY Calcium Cholecalciferol (Vitamin D3) 1,000 UNIT TABLET 2,000 IU PO DAILY Vitamin D Clopidogrel Bisulfate (Plavix) 75 MG TABLET 1 TAB PO DAILY STROKE (Reported) Donepezil HCl (Aricept) 5 MG TABLET 1 TAB PO QPM DEMENTIA (Reported) Escitalopram Oxalate 10 MG TABLET 1 TAB PO DAILY DEPRESSION (Reported) Gabapentin (Neurontin) 300 MG CAPSULE 1 CAP PO QPM HEADACHE (Reported) Ipratropium [place] 21 MCG (0.03 %) SPRAY 1 SPRAY LESLI Q8 PRN Allergies ( Reported) Lacosamide (Vimpat) 100 MG TABLET 1 TAB PO BID SEIZURES (Reported) Lamotrigine (Lamictal) 100 MG TABLET 1 TAB PO BID SEIZURES (Reported) Lidocaine 5 % ADH..PATCH 1 PAT TOP PRN PAIN (Reported) Linagliptin (Tradjenta) 5 MG TABLET 0.5 TAB PO DAILY DIABETES (Reported) Pantoprazole Sodium 40 MG TABLET.DR 1 TAB PO DAILY ACID REFLUX (Reported) Prochlorperazine Maleate 5 MG TABLET 1 TAB PO PRN N/V (Reported) Tramadol HCl 50 MG TABLET 50 MG PO Q6P PRN PAIN SCALE 7-10 (SEVERE) Triage Note: PT TO ED WITH DAUGHTER FOR HIGH BP, N/V, WEAKNESS, DIZZINESS. DAUGHTER ALSO STATES HIGH BLOODSUGAR. THE LAST 2 DAYS. PT DENIES PAIN, ONLY C/O FEELING DIZZY. FINGER STICK 249. MANUAL BP IN TRIAGE 132/66. Triage Nurses Notes Reviewed? yes Onset: Gradual Duration: day(s):, continues in ED, getting worse, waxing and waning HPI: Patient presents for evaluation of increased blood pressure, increased blood sugar level, nausea, vomiting and lightheadedness over yesterday and today. Patient called her medical doctor and was told to go to the emergency department for evaluation. There has been no associated fever, cold symptoms, diarrhea, dysuria or rashes. Patient has been compliant with her medications. Past History Travel History Traveled to [place] past 21 day No Medical History Any Pertinent Medical History? see below for history Neurological: CVA, seizure, headaches Cardiovascular: hypertension, hyperlipidemia Respiratory: NONE Gastrointestinal: H/O CDIFF 03/2015 Hepatic: NONE Renal: CKD Musculoskeletal: NONE Psychiatric: depression Endocrine: diabetes Blood Disorders: NONE Cancer(s): NONE JORDAN MAN/Reproductive: NONE Other Medical Hx: family history: negative for renal diseaes History of MRSA: No History of VRE: No History of CDIFF: No Surgical History Surgical History: non-contributory Psychosocial History Who do you live with Family Services at Home None What is your primary language Slovenian Tobacco Use: Never used ETOH Use: denies use Illicit Drug Use: denies illicit drug use Family History Family History, If Any: Relation not specified for: FH: diabetes mellitus FHx: hypertension Hx Contributory? No Review of Systems Review of Systems Constitutional: Reports: no symptoms, malaise. EENTM: Reports: no symptoms. Respiratory: Reports: no symptoms. Cardiovascular: Reports: no symptoms. GI: Reports: see HPI. Genitourinary: Reports: no symptoms. Musculoskeletal: Reports: no symptoms. Skin: Reports: no symptoms. Neurological/Psychological: Reports: no symptoms. Hematologic/Endocrine: Reports: no symptoms. Immunologic/Allergic: Reports: no symptoms. All Other Systems: Reviewed and Negative Physical Exam Physical Exam General Appearance: SEE BELOW Comments: Gen.: Well-nourished, well-developed, no acute respiratory distress. Head: Normocephalic, atraumatic. Eyes: Normal inspection bilaterally Ears: Normal inspection bilaterally Nose: Normal inspection Throat/mouth : Moist mucosa Neck: Supple, full range of motion, no goiter Heart: Regular rate and rhythm, no murmurs rubs or gallops Lungs: Clear to auscultation bilaterally with normal air entry Chest: Nontender Back: Normal range of motion Abdomen: Soft, mild epigastric abdominal tenderness without rebound or guarding, nondistended, normal bowel sounds Extremities: Normal range of motion grossly, equal radial pulses, no cyanosis clubbing or edema Neurologic: Cranial nerves grossly intact, speech is clear Skin: warm and dry Psychiatric: Calm, cooperative, no apparent delusions or hallucinations Core Measures ACS in differential dx? No CVA/TIA Diagnosis: No Sepsis Present: No Sepsis Focused Exam Completed? No Progress Differential Diagnoses I considered the following diagnoses in my evaluation of the patient: sbo,ileus, gi bleed,biliary colic,divericulitis, electrolyte abnormality Plan of Care: Orders Procedure Date/time Status TSH REFLEX 06/28 1345 Complete TROPONIN LEVEL 06/28 1345 Complete LIPASE 06/28 1345 Complete COMPREHENSIVE METABOLIC PANEL 06/28 1345 Complete CBC WITHOUT DIFFERENTIAL 06/28 1345 Complete Laboratory Tests 06/28/17 1424: Anion Gap 15, Estimated GFR 54 L, BUN/Creatinine Ratio 29.0 H, Glucose 284 H, Calcium 9.4, Total Bilirubin 0.5, AST 21, ALT 24, Alkaline Phosphatase 100, Troponin I < 0.01, Total Protein 6.9, Albumin 4.1, Globulin 2.8, Albumin/ Globulin Ratio 1.5, Lipase 64, TSH &T3 &Free T4 Intrp 0.763, CBC w Diff NO MAN DIFF REQ, RBC 3.87 L, MCV 87.6, MCH 29.3, MCHC 33.4, RDW 14.1, MPV 8.4, Gran % 84.8 H, Lymphocytes % 10.4 L, Monocytes % 3.4, Eosinophils % 1.2, Basophils % 0.2, Absolute Granulocytes 8.3 H, Absolute Lymphocytes 1.0 L, Absolute Monocytes 0.3, Absolute Eosinophils 0.1, Absolute Basophils 0 Diagnostic Imaging: Discussed w/RAD: CT Scan. Radiology Impression: PATIENT: PRETTY ROBERTS PRESENT AGE : 72 PATIENT ACCOUNT NO: [id number] : 44 LOCATION: [facility] ORDERING PHYSICIAN: Ajay Lozoya MD SERVICE DATE: 06/28/17-0510 EXAM TYPE: CAT - CT ABD & PELVIS W IV CONTRAST EXAMINATION: CT ABDOMEN AND PELVIS WITH CONTRAST CLINICAL INFORMATION: 72-year-old female patient with epigastric abdominal pain. COMPARISON: CT the chest, abdomen, and pelvis on 05/24/2017. CT the pelvis and abdomen on 05/19/2017. CT of the abdomen and pelvis on 10/05/2016. CT exam done 03/11/2015. TECHNIQUE: Multidetector volumetric imaging was performed of the abdomen and pelvis following IV administration of 95 mL of Optiray 320 intravenous contrast. Sagittal and coronal reformatted images were obtained on the technologist's workstation. 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 No obstruction is suspected. Previous cardiac surgery has been performed. LUNG BASES: Linear scarring involving the medial aspect of the left lower lobe. There is a large hiatal hernia containing approximately one third of the stomach. LIVER, GALLBLADDER, AND BILIARY TREE: Normal. PANCREAS: Unremarkable. SPLEEN: Unremarkable. ADRENAL GLANDS: The right adrenal gland is normal. A small enhancing 1.2 cm diameter nodule arises from the left adrenal gland. This has not increased in size since a scan done 03/09/2015. KIDNEYS AND URETERS: The kidneys are normal in size, shape, and attenuation. No hydronephrosis, hydroureter, or calculi seen. No perinephric stranding. Tiny cortical cysts are seen in both kidneys. BLADDER: Unremarkable. GASTROINTESTINAL TRACT: Sigmoid is redundant. There is a moderate amount of stool impacted in the rectosigmoid colon. There are no signs of colonic wall thickening or pericolonic inflammation. The cecum lies in the right iliac fossa. The appendix is not clearly visualized but there is no sign of peripheral cecal inflammation. The small bowel is not distended. There is no free air or fluid. ABDOMINAL WALL: No significant hernia is appreciated. LYMPH NODES: Normal. VASCULAR: Unremarkable. PELVIC VISCERA: Uterus has been removed. OSSEOUS STRUCTURES: Unremarkable. IMPRESSION: 1. Increased burden of formed stool throughout the colon and mild impaction in the sigmoid. 2. Stable left adrenal nodule. 3. Large hiatal hernia. DICTATED BY: Victor Hugo Coelho MD DATE/TIME DICTATED:06/28/171623 GENOMICS SCIENTIST:RAYSA DATE/TIME TRANSCRIBED:06/28/171623 CONFIDENTIAL, DO NOT COPY WITHOUT APPROPRIATE AUTHORIZATION. <Electronically signed in Other Vendor System> SIGNED BY: Victor Hugo Coelho MD 06/28/17 1651 Initial ED EKG: none Departure Departure Disposition: HOME OR SELF CARE Condition: Stable Clinical Impression Primary Impression: Hyperglycemia Referrals: Poppy Wu MD (PCP/Family) Additional Instructions: Maintain a good fluid intake. Zofran as needed for nausea or vomiting. Monitor sugar levels before each meal and at bedtime and record these for review by your primary care physician or boiling tub operator. Follow-up with your primary care physician this week for reevaluation of your blood pressure and sugar levels. Strict diabetic diet. Return if any concerns or sudden worsening. Please note that there might be incidental findings in your evaluation that are unrelated to the current emergency department visit. Please notify your primary care doctor about this emergency department visit in order to obtain and review all of the testing performed so that these incidental findings can be monitored as needed. If you had an x-ray performed, please understand that some fractures may not be seen on the initial set of x-rays. If your symptoms persist you might need a repeat set of x-rays to check for such a fracture. If you had a laceration evaluated, please understand that foreign bodies such as glass or wood may not be visible to the naked eye or on plain x-rays. If the wound becomes red, swollen, increasingly more painful or if there is any drainage from the wound, please have it reevaluated by a physician for the possibility of a retained foreign body. If you're unable to follow up as outlined in the discharge instructions please return to the emergency department. Thank you for choosing the Emergency Department for your care. It was a pleasure to serve you today. Ajay Lozoya M.D. [facility] Departure Forms: Customer Survey General Discharge Information Critical Care Note Critical Care Note Critical Care Time: non-applicable
[2017-06-28 14:32] LABS: ABSOLUTE BASOPHIL COUNT 0 /CUMM (0.0-0.2); ABSOLUTE EOSINOPHIL COUNT 0.1 /CUMM (0.0-0.7); ABSOLUTE GRANULOCYTE CT 8.3 /CUMM (1.4-6.5); ABSOLUTE MONOCYTE COUNT 0.3 /CUMM (0.10-0.60); BASOPHIL % 0.2 % (0.0-2.0); EOSINOPHIL % 1.2 % (0-5); HEMATOCRIT 33.9 % (37-47); MEAN CORPUSCULAR HGB 29.3 PG (27.0-31.0); MEAN CORPUSCULAR HGB CONC 33.4 G/DL (33.0-37.0); MEAN CORPUSCULAR VOLUME 87.6 FL (81.0-99.0); MEAN PLATELET VOLUME 8.4 FL (7.4-10.4); PLATELET COUNT 242 /CUMM (130-400); RBC DISTRIBUTION WIDTH 14.1 % (11.5-14.5); RED BLOOD CELL CT 3.87 /CUMM (4.20-5.40); WHITE BLOOD CELL COUNT 9.7 /CUMM (4.8-10.8)
[2017-06-28 14:52] LABS: GRANULOCYTE % 84.8 % (42.2-75.2)
--- NOTE | 2017-06-28 16:51 | CT SCAN REPORT ---
EXAMINATION: CT ABDOMEN AND PELVIS WITH CONTRAST CLINICAL INFORMATION: 72-year-old female patient with epigastric abdominal pain. COMPARISON: CT the chest, abdomen, and pelvis on 05/24/2017. CT the pelvis and abdomen on 05/19/2017. CT of the abdomen and pelvis on 10/05/2016. CT exam done 03/11/2015. TECHNIQUE: Multidetector volumetric imaging was performed of the abdomen and pelvis following IV administration of 95 mL of Optiray 320 intravenous contrast. Sagittal and coronal reformatted images were obtained on the technologist's workstation. 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 No obstruction is suspected. Previous cardiac surgery has been performed. LUNG BASES: Linear scarring involving the medial aspect of the left lower lobe. There is a large hiatal hernia containing approximately one third of the stomach. LIVER, GALLBLADDER, AND BILIARY TREE: Normal. PANCREAS: Unremarkable. SPLEEN: Unremarkable. ADRENAL GLANDS: The right adrenal gland is normal. A small enhancing 1.2 cm diameter nodule arises from the left adrenal gland. This has not increased in size since a scan done 03/09/2015. KIDNEYS AND URETERS: The kidneys are normal in size, shape, and attenuation. No hydronephrosis, hydroureter, or calculi seen. No perinephric stranding. Tiny cortical cysts are seen in both kidneys. BLADDER: Unremarkable. GASTROINTESTINAL TRACT: Sigmoid is redundant. There is a moderate amount of stool impacted in the rectosigmoid colon. There are no signs of colonic wall thickening or pericolonic inflammation. The cecum lies in the right iliac fossa. The appendix is not clearly visualized but there is no sign of peripheral cecal inflammation. The small bowel is not distended. There is no free air or fluid. ABDOMINAL WALL: No significant hernia is appreciated. LYMPH NODES: Normal. VASCULAR: Unremarkable. PELVIC VISCERA: Uterus has been removed. OSSEOUS STRUCTURES: Unremarkable. IMPRESSION: 1. Increased burden of formed stool throughout the colon and mild impaction in the sigmoid. 2. Stable left adrenal nodule. 3. Large hiatal hernia.
[2017-06-28 18:20] VITALS: BP 154/83
== END 2017-06-28 18:25 ==
LOC: ERH 12:59
PROVIDERS: Emergency Medicine
DX: E11.65 Type 2 diabetes mellitus with hyperglycemia (principal)
CPT/HCPCS: 74177; 96374; J2405; J7040